=== PATIENT | female | born 1945 | race Caucasian/White ===

== ENCOUNTER 2019-12-05 14:19 | Inpatient (IN) | payer MEDICARE, OTHER ==
[~2019-12-05] VITALS: Ht 154.9 cm; Wt 75.0 kg
[2019-12-05 18:30] VITALS: BP 135/63
[2019-12-05] MEDS ORDERED: ATEN50TA2 PO (19:07)
[2019-12-05] MEDS ORDERED: LATA0.0015 OU (19:07)
[2019-12-05] MEDS ORDERED: METR1INJ2 IV (19:07)
[2019-12-05] MEDS ORDERED: CIPR1.5I IV (19:07)
[2019-12-05] MEDS ORDERED: HYDR25TAB PO (19:07)
[2019-12-05] MEDS ORDERED: PRESCAP PO (19:07)
[2019-12-05] MEDS ORDERED: SYNT112T2 PO (19:07)
[2019-12-05 19:15] LABS: HEMATOCRIT 34.8 % (36.0-47.0); HEMOGLOBIN 11.1 g/dl (12.0-15.5); MEAN CORPUSCULAR HEMOGLOBIN 29.4 pg (27.0-33.0); MEAN CORPUSCULAR HGB CONC 31.9 g/dl (32.0-36.5); MEAN CORPUSCULAR VOLUME 92.1 fl (80.0-96.0); PLATELET COUNT, AUTOMATED 185 10^3/uL (150-450); RED BLOOD COUNT 3.78 10^6/uL (4.00-5.40); WHITE BLOOD COUNT 4.5 10^3/uL (4.0-10.0)
[2019-12-05] MEDS ORDERED: CIPROFLOXACIN/D5W 400 MG/200 ML BAG (J0744) IV SCH (19:15)
[2019-12-05] MEDS ORDERED: metroNIDAZOLE/NACL 500MG(5MG/ML)100 ML BAG (S0030) IV SCH (19:15)
[2019-12-05 19:38] LABS: ALBUMIN 3.1 GM/DL (3.2-5.2); ALT/SGPT 257 U/L (12-78); AMYLASE 50 U/L (25-115); BILIRUBIN,TOTAL 1.3 MG/DL (0.2-1.0); BLOOD UREA NITROGEN 8 MG/DL (7-18); CALCIUM LEVEL 8.3 MG/DL (8.8-10.2); CARBON DIOXIDE LEVEL 23 MEQ/L (21-32); CHLORIDE LEVEL 110 MEQ/L (98-107); CREATININE FOR GFR 0.61 MG/DL (0.55-1.30); GLOMERULAR FILTRATION RATE > 60.0 (>39); GLUCOSE, FASTING 71 MG/DL (70-100); LIPASE 308 U/L (73-393); POTASSIUM SERUM 3.3 MEQ/L (3.5-5.1); SODIUM LEVEL 144 MEQ/L (136-145); TOTAL PROTEIN 5.9 GM/DL (6.4-8.2)
[2019-12-05] MEDS: NS 1,000 ML IV SCH (19:43)
[2019-12-05] MEDS ORDERED: CIPROFLOXACIN 400 MG in IV 1 EA IV SCH (21:00)
--- NOTE | 2019-12-05 21:00 | HPEPDOC ---
[facility] Medical History & Physical Date of Admission Dec 05, 2019 Date of Service: Dec 05, 2019 Other Provider Julian SYLVESTER Attending Physician: JAVIER LOPEZ MD History and Physical TIME OF SERVICE: 8:42 PM CHIEF COMPLAINT: Abdominal pain HISTORY OF PRESENT ILLNESS: This is a 74 old female that presented to [facility] on December 04 with complaints of 2 week in duration , relapsing and remitting right upper quadrant abdominal pain that radiated to her back and was associated with nausea but not vomiting. Her blood work was remarkable for lipase of 577; ultrasound confirmed the presence of gallstones without findings consistent with acute cholecystitis , while MRCP showed a 0.5 cm stone. Currently, she denies having abdominal pain nausea, vomiting, fevers or chills. REVIEW OF SYSTEMS: 12 point review of systems negative except as listed in HPI PAST MEDICAL/ SURGICAL HISTORY: Chronic hypertension Gout Dyslipidemia Hypothyroidism Status post tubal ligation Last post left rotator cuff surgery SOCIAL HISTORY: She quit smoking 40 years ago FAMILY HISTORY: CAD Liver cirrhosis Diabetes Bladder cancer ALLERGIES: Please see below. HOME MEDICATIONS: Please see below. PHYSICAL EXAMINATION: VITAL SIGNS: Please see below. GEN: well-nourished / well developed/ NAD INTEGUMENT: not flushed/ not jaundice / no Mayer sign or Enfield sign HEENT: NCAT / lips acyanotic /mucus membranes moist and pink / sclera anicteric CVS: RRR/NMRG LUNGS: lungs are clear to auscultation bilaterally on room air ABDOMEN: Contour obese / there are no masses or lesions /the abdomen is soft & not tender with palpation MSK/EXTREMITIES: range of motion intact in all 4 extremities NEURO: CN 2-12 are grossly intact / speech is not dysarthric PSYCH: alert and oriented to person place and time/ able to understand and follow all commands LABORATORY DATA: See below. IMAGING: Please see HPI. MICROBIOLOGY: Please see below. ASSESSMENT: Ms. Olivas is a 74 year old female the past medical history of hypertension, dyslipidemia, hypothyroidism who was transferred from [facility] for ERCP. PLAN: 1. Choledocholithiasis. Mild gallstone pancreatitis has resolved Plan: Admit to medical floor/nothing by mouth/IV fluids/follow-up GI / discontinue antibiotics / Tylenol when necessary 2. Chronic hypertension. Plan: Atenolol, hydrochlorothiazide 3. Hypothyroidism. Plan: Levothyroxine 4. Obesity BMI is 31.2 This complicates care Plan: can f/u w PCP for STOP BANG questionnaire & senior physical therapist consult on an outpatient basis/ recommend cardiovascular exercise for 40 min 4-5 days a week DVT PROPHYLAXIS: SCDs DISPOSITION: Home after more than 2 midnight's stay Vital Signs Vital Signs Date Time Temp Pulse Resp B/P (MAP) Pulse Ox O2 Delivery O2 Flow Rate FiO2 12/05/19 18:30 98.0 63 18 135/63 (87) 98 Room Air Laboratory Data Labs 24H Laboratory Tests 2 12/05/19 19:03: Nucleated Red Blood Cells % (auto) 0.0, Anion Gap 11, Glomerular Filtration Rate > 60.0, Calcium Level 8.3L, Total Bilirubin 1.3H, Aspartate Amino Transf (AST/SGOT) 132H, Alanine Aminotransferase (ALT/SGPT) 257H, Alkaline Phosphatase 301H, Total Protein 5.9L, Albumin 3.1L, Albumin/Globulin Ratio 1.11, Amylase Level 50, Lipase 308 CBC/BMP Laboratory Tests 12/05/19 19:03 Home Medications Scheduled Atenolol (Atenolol) 50 Mg Tablet, 50 MG PO DAILY Ciprofloxacin in 5 % Dextrose (Ciprofloxacn-D5w 400 mg/200 ml) 400 Mg/200 Ml Piggyback, 400 MG IV Q12H RECEIVED AT [facility] Hydrochlorothiazide (Hydrochlorothiazide) 25 Mg Tablet, 25 MG PO DAILY Latanoprost/Pf (Latanoprost 0.005% Eye Drop) 7.5 Ml Drops, 1 DROP OU QHS Levothyroxine Sodium (Synthroid) 112 Mcg Tablet, 112 MCG PO DAILY Metronidazole/Sodium Chloride (Metronidazole 500 mg/100 ml) 500 Mg/100 Ml Piggyback, 500 MG IV Q8H RECEIVED AT [facility] Vit A/Vit C/Vit E/Zinc/Copper (Preservision Areds Softgel) 1 Each Capsule, 1 CAP PO BID Allergies Coded Allergies: Penicillins (Verified Allergy, Intermediate, rash, redness, 12/05/19) A-FIB/CHADSVASC A-FIB History Current/History of A-Fib/PAF?: No Current PO Anticoag Therapy: No JAVIER LOPEZ MD Dec 05, 2019 21:00
[2019-12-05] MEDS: OCUVITE 1 TAB PO SCH (21:51)
[2019-12-05] MEDS: LATANOPROST 0.005% OPHTH SOLN 2.5 ML OU SCH (21:51)
[2019-12-05 22:00] VITALS: BP 134/63
[2019-12-05] MEDS ORDERED: metroNIDAZOLE 500 MG in IV 1 EA IV SCH (22:00)
[2019-12-06] VITALS (8 sets, daily range): BP systolic 107–119; BP diastolic 59–78
[2019-12-06 06:02] LABS: HEMATOCRIT 35.4 % (36.0-47.0); HEMOGLOBIN 11.1 g/dl (12.0-15.5); MEAN CORPUSCULAR HGB CONC 31.4 g/dl (32.0-36.5); MEAN CORPUSCULAR VOLUME 92.4 fl (80.0-96.0); PLATELET COUNT, AUTOMATED 172 10^3/uL (150-450); RED BLOOD COUNT 3.83 10^6/uL (4.00-5.40); WHITE BLOOD COUNT 4.8 10^3/uL (4.0-10.0)
[2019-12-06] MEDS: LEVOTHYROXINE 112MCG TABLET (0.112MG) PO SCH (06:07)
[2019-12-06] MEDS: ACETAMINOPHEN 650MG ER TAB (TYLENOL ARTHRITIS) PO PRN ×2 (06:24→22:03)
[2019-12-06 06:25] LABS: ALT/SGPT 217 U/L (12-78); BLOOD UREA NITROGEN 10 MG/DL (7-18); CALCIUM LEVEL 8.2 MG/DL (8.8-10.2); CARBON DIOXIDE LEVEL 22 MEQ/L (21-32); CHLORIDE LEVEL 110 MEQ/L (98-107); CREATININE FOR GFR 0.61 MG/DL (0.55-1.30); GLOMERULAR FILTRATION RATE > 60.0 (>39); GLUCOSE, FASTING 55 MG/DL (70-100); MAGNESIUM LEVEL 1.9 MG/DL (1.8-2.4); POTASSIUM SERUM 3.2 MEQ/L (3.5-5.1); SODIUM LEVEL 142 MEQ/L (136-145)
[2019-12-06] MEDS: NS 1,000 ML IV SCH ×2 (07:26→18:23)
[2019-12-06] MEDS: hydroCHLOROthiazide 25 MG TAB PO SCH (08:56)
[2019-12-06] MEDS: OCUVITE 1 TAB PO SCH ×2 (08:56→22:03)
[2019-12-06] MEDS: atenoloL 50 MG TAB PO SCH (08:57)
[2019-12-06] MEDS: POTASSIUM CHLORIDE 10 MEQ SR TABLET PO SCH ×2 (08:57→12:23)
[2019-12-06] MEDS ORDERED: ISOVUE-300 61% 50ML VIAL (Q9967) As Ordered ONE (13:54)
[2019-12-06] MEDS ORDERED: fentaNYL 100 MCG/2 ML INJECTION (J3010) As Ordered ONE (15:46)
[2019-12-06] MEDS ORDERED: ROCURONIUM BROMIDE 50 MG/5 ML VIAL As Ordered ONE (15:46)
[2019-12-06] MEDS ORDERED: propofoL 200 MG/20 ML VIAL As Ordered ONE (15:46)
[2019-12-06] MEDS ORDERED: MIDAZOLAM INJ 2 MG/2 ML VIAL (J2250) As Ordered ONE (15:46)
[2019-12-06] MEDS ORDERED: LIDOCAINE 2% INJ 100 MG/5 ML SDV (FOR ANES.) As Ordered ONE (15:46)
[2019-12-06] MEDS ORDERED: SCOPOLAMINE 1MG TRANSDERMAL PATCH TOP ONE (16:15)
--- NOTE | 2019-12-06 17:15 | IPNPDOC ---
Date Seen The patient was seen on 12/06/19. Progress Note SUBJECTIVE: 74 y.o female w/ PMH of HTN, HLD & Hypothyroidism was transferred from another facility for choledocholithiasis requiring ERCP. She was seen in the morning, she reports significant improvement in nausea & abdominal pain. She reports minimal symptoms at this time, nearly close to her baseline. She was evaluated by Dr. Kapoor overnight and scheduled for ERCP later today. She denies any chest pain, vomiting, abdominal pain, diarrhea or constipation. 10 point review of system is negative except for above PHYSICAL EXAMINATION: VITAL SIGNS: Please see below. GENERAL: No distress HEENT: Normocephalic, atraumatic, moist mucous membranes NECK: Supple CARDIOVASCULAR EXAMINATION: S1, S2, no murmurs RESPIRATORY EXAMINATION: Clear to auscultation, no wheezing ABDOMINAL EXAMINATION: Soft, minimal right upper quadrant tenderness, nondistended, positive bowel sounds EXTREMITIES: Range of motion intact SKIN: No rash NEUROLOGICAL EXAMINATION: Alert and oriented 3, no focal deficits PSYCHIATRIC EXAMINATION: Calm and cooperative LABORATORY DATA, IMAGING STUDIES, MICROBIOLOGY: Please see below. ASSESSMENT AND PLAN: 74-year-old female with past medical history of hypertension, hyperlipidemia and hypothyroidism, presented from another facility with choledocholithiasis for an ERCP. PROBLEMS: 1. Choledocholithiasis: Evaluated by Dr. Kapoor overnight, plan for ERCP later today, patient is currently minimally symptomatic with improvement in LFTs, questionable passing of stone, continue maintenance IV fluids. 2. Hypertension: Continue atenolol and hydrochlorothiazide. 3. Hypothyroidism: Continue levothyroxine. DVT prophylaxis: SCD/TEDs GI prophylaxis: Not needed at this time VS, I&O, 24H, Saniya Vital Signs/I&O Vital Signs Date Time Temp Pulse Resp B/P (MAP) Pulse Ox O2 Delivery O2 Flow Rate FiO2 12/06/19 08:57 69 119/61 12/06/19 06:00 96.4 20 96 12/05/19 18:30 Room Air I&O- Last 24 Hours up to 6 AM 12/06/19 06:00 Intake Total 300 ml Output Total 550 ml Balance -250 ml Laboratory Data 24H LABS Laboratory Tests 2 12/05/19 19:03: Nucleated Red Blood Cells % (auto) 0.0, Anion Gap 11, Glomerular Filtration Rate > 60.0, Calcium Level 8.3L, Total Bilirubin 1.3H, Aspartate Amino Transf ( AST/SGOT) 132H, Alanine Aminotransferase (ALT/SGPT) 257H, Alkaline Phosphatase 301H, Total Protein 5.9L, Albumin 3.1L, Albumin/Globulin Ratio 1.11, Amylase Level 50, Lipase 308 12/06/19 05:37: Nucleated Red Blood Cells % (auto) 0.0, Anion Gap 10, Glomerular Filtration Rate > 60.0, Calcium Level 8.2L, Total Bilirubin 1.0, Aspartate Amino Transf (AST/SGOT) 96H, Alanine Aminotransferase (ALT/SGPT) 217H, Alkaline Phosphatase 271H, Total Protein 6.0L, Albumin 3.0L, Albumin/Globulin Ratio 1.00, Magnesium Level 1.9 CBC/BMP Laboratory Tests 12/05/19 19:03 12/06/19 05:37 MARK HERMAN MD Dec 06, 2019 17:15
[2019-12-06] MEDS ORDERED: SUGAMMADEX SODIUM 500 MG/5 ML VIAL (BRIDION) As Ordered ONE (17:19)
[2019-12-06] MEDS ORDERED: ONDANSETRON 4MG/2ML VIAL (J2405) As Ordered ONE (17:20)
[2019-12-06] MEDS ORDERED: dexameTHASONE 4 MG/ML 1ML VIAL (J1100) As Ordered ONE (17:20)
[2019-12-06] MEDS ORDERED: METOCLOPRAMIDE INJ 10MG/2ML VIAL (J2765) As Ordered ONE (17:20)
[2019-12-06] MEDS ORDERED: EPINEPHrine 1MG/10ML SYRINGE 1.5IN As Ordered ONE (17:22)
--- NOTE | 2019-12-06 17:52 | ROOR ---
Patient Name: Daphnie Olivas Procedure Date: 12/06/2019 1:21 PM Date of : 1945 Age: 74 Gender: Female Note Status: Finalized Procedure: ERCP + Papillotomy + Balloon Sweep Indications: Abdominal pain of suspected biliary origin, Abnormal MRCP, Elevated liver enzymes, Evaluation and possible treatment of bile duct stone(s), Bile duct stone(s) Providers: Sharif Kapoor MD Referring MD: 2. Inpatient 2. Inpatient Requesting Provider: Medicines: General Anesthesia Complications: No immediate complications. Procedure: Pre-Anesthesia Assessment: - The heart rate, respiratory rate, oxygen saturations, blood pressure, adequacy of pulmonary ventilation, and response to care were monitored throughout the procedure. The Duodenoscope was introduced through the mouth, and advanced to the duodenum and used to inject contrast into the bile duct. The ERCP was accomplished without difficulty. The patient tolerated the procedure well. Findings: The upper GI tract was traversed under direct vision without detailed examination. The major papilla was normal. The bile duct was deeply cannulated with the short-nosed traction sphincterotome. Contrast was injected. I personally interpreted the bile duct images. Ductal flow of contrast was adequate. Image quality was adequate. Contrast extended to the entire biliary tree. The lower third of the main bile duct contained one stone. The entire biliary tree was mildly dilated, with a stone causing an obstruction. A short 0.035 inch Soft Jagwire was passed into the biliary tree. Biliary sphincterotomy was made with a monofilament traction (standard) sphincterotome using ERBE electrocautery. There was no post-sphincterotomy bleeding. The biliary tree was swept with a 12 mm balloon starting at the bifurcation. Sludge was swept from the duct. All stones were removed. Nothing was found. Impression: - The entire biliary tree was mildly dilated, with a stone causing an obstruction. - Choledocholithiasis was found. Complete removal was accomplished by biliary sphincterotomy and balloon extraction. - A biliary sphincterotomy was performed. - The biliary tree was swept and nothing was found. - The examination was otherwise normal. Recommendation: - Avoid aspirin and nonsteroidal anti-inflammatory medicines for 2 weeks. - Low fat diet. - [facility]. - Watch for pancreatitis, bleeding, perforation, and cholangitis. - The findings and recommendations were discussed with the patient's family. - The findings and recommendations were discussed with the patient. Sharif Kapoor MD Sharif Kapoor MD 12/06/2019 5:51:43 PM Electronically signed by Sharif Kapoor MD Number of Addenda: 0 Note Initiated On: 12/06/2019 1:21 PM Estimated Blood Loss: Estimated blood loss: none.
--- NOTE | 2019-12-06 18:06 | REP ---
ERCP: Four views. History: Abdomen pain. 1 minute 44 seconds of fluoroscopy time was utilized. Findings: A sequence of four last image hold fluoroscopically obtained spot radiographs of the right upper quadrant taken during ERCP document cannulation and contrast injection of the common bile duct. Electronically Signed by Roshan Gregg MD 12/06/2019 06:25 P
[2019-12-06] MEDS ORDERED: ONDANSETRON 4MG/2ML VIAL (J2405) IV PRN (18:15)
[2019-12-06] MEDS ORDERED: NS 1,000 ML IV SCH (18:15)
--- NOTE | 2019-12-06 21:11 | CR ---
DATE OF CONSULTATION: 12/05/2019 This is a 74-year-old white female who was seen on 12/05/2019 after she was transferred from [facility]. The patient has had chronic relapsing bouts of right upper quadrant pain with three multiple bouts with radiation to her back. She has had symptoms since early October. She presented now to [facility] with a lipase of 577. Ultrasound did show gallstones and sludge in the gallbladder with acute cholecystitis. Magnetic resonance cholangiopancreatography (MRCP) showed a 0.5 mm common bile duct stone. The patient denies any fevers, night sweats or shaking chills. She is being seen by GI for evaluation and consideration for an endoscopic retrograde cholangiopancreatography (ERCP). 12-point review of systems is negative except as listed above in the history of the present illness. PAST MEDICAL HISTORY: Positive for hypertension, gout, dyslipidemia, hypothyroidism, status post tubal ligation, status post left rotator cuff surgery. SOCIAL HISTORY: The patient stopped smoking 40 years ago. FAMILY HISTORY: Positive for coronary artery disease, cirrhosis of the liver, diabetes and bladder cancer. PHYSICAL EXAMINATION: General: Well-developed, well-nourished white female in no obvious acute distress. Appears stated age. Chest: Clear to auscultation. Cardiovascular Exam: Showed a regular rhythm. No murmurs or gallops. Normal physiologic split, S1, S2. Abdomen: Soft, mild right upper quadrant tenderness. No hepatosplenomegaly. Bowel sounds are positive. Extremities: No cyanosis, clubbing, or edema. Dewey's negative. Laboratory studies on admission showed a white count of 4500, hemoglobin and hematocrit of 11.1 and 34.8. The patient's chemistry showed a total bilirubin of 1.3, AST 132, ALT was 257, alkaline phosphatase was 301, lipase was 308, which is within our normal range. ANALYSIS: Gallstone pancreatitis. At the present time, the patient has liver functions that are elevated, abnormal imaging of common bile duct by magnetic resonance cholangiopancreatography (MRCP), suggesting a common bile duct stone and is symptomatic with recurrent episodes of abdominal pain. PLAN: 1. Plan will be to set the patient up for an ERCP, papillotomy balloon sweep to clear the common bile duct. 2. The patient would need a laparoscopic cholecystectomy as an outpatient once an acceptable interval between the pancreatitis and surgery for the surgeon. Usually 4-6 weeks post pancreatitis to consider laparoscopic cholecystectomy. 3. Informed consent has been given to the patient for ERCP.
[2019-12-06] MEDS: LATANOPROST 0.005% OPHTH SOLN 2.5 ML OU SCH (22:03)
[2019-12-07 02:00] VITALS: BP 113/57
[2019-12-07] MEDS: LEVOTHYROXINE 112MCG TABLET (0.112MG) PO SCH (05:38)
[2019-12-07 06:17] LABS: HEMATOCRIT 36.8 % (36.0-47.0); HEMOGLOBIN 11.7 g/dl (12.0-15.5); MEAN CORPUSCULAR HEMOGLOBIN 29.1 pg (27.0-33.0); MEAN CORPUSCULAR HGB CONC 31.8 g/dl (32.0-36.5); MEAN CORPUSCULAR VOLUME 91.5 fl (80.0-96.0); PLATELET COUNT, AUTOMATED 213 10^3/uL (150-450); RED BLOOD COUNT 4.02 10^6/uL (4.00-5.40); WHITE BLOOD COUNT 6.4 10^3/uL (4.0-10.0)
[2019-12-07 06:30] LABS: ALBUMIN 2.9 GM/DL (3.2-5.2); ALT/SGPT 184 U/L (12-78); BILIRUBIN,TOTAL 0.8 MG/DL (0.2-1.0); BLOOD UREA NITROGEN 8 MG/DL (7-18); CALCIUM LEVEL 8.4 MG/DL (8.8-10.2); CARBON DIOXIDE LEVEL 18 MEQ/L (21-32); CHLORIDE LEVEL 111 MEQ/L (98-107); CREATININE FOR GFR 0.67 MG/DL (0.55-1.30); GLOMERULAR FILTRATION RATE > 60.0 (>39); GLUCOSE, FASTING 150 MG/DL (70-100); MAGNESIUM LEVEL 1.7 MG/DL (1.8-2.4); PHOSPHORUS LEVEL 3.3 MG/DL (2.5-4.9); POTASSIUM SERUM 4.1 MEQ/L (3.5-5.1); SODIUM LEVEL 139 MEQ/L (136-145); TOTAL PROTEIN 6.4 GM/DL (6.4-8.2)
[2019-12-07] MEDS: PROMETHAZINE INJ 25 MG/ML VIAL (J2550) IV PRN ×2 (08:33→15:50)
[2019-12-07] MEDS: hydroCHLOROthiazide 25 MG TAB PO SCH (08:40)
[2019-12-07] MEDS: atenoloL 50 MG TAB PO SCH (08:40)
[2019-12-07] MEDS: OCUVITE 1 TAB PO SCH ×2 (09:00→20:19)
[2019-12-07 09:20] VITALS: BP 153/79
[2019-12-07] MEDS ORDERED: ONDANSETRON 4 MG TAB (S0181) PO PRN (10:00)
[2019-12-07] MEDS: NS 1,000 ML IV SCH (11:53)
[2019-12-07] MEDS: ONDANSETRON 4MG/2ML VIAL (J2405) IV PRN (11:53)
[2019-12-07] MEDS ORDERED: MAG SULF 1GM/100ML (MAG RUN) 1 GM in IV 1 EA IV ONE (12:00)
--- NOTE | 2019-12-07 12:14 | IPNPDOC ---
Subjective Date Seen The patient was seen on 12/07/19. Subjective Chief Complaint/HPI Patient is still complaining of persistent nausea and vomiting. Had some emesis this morning and now complaining of abdominal pain which is right upper quadrant and in location General: Denies: ROS Unobtainable, Chills, Night Sweats, Fatigue, Malaise, Normal Appetite, Other Symptoms Constitutional: Denies: Chills, Fever, Malaise, Night Sweats, Weakness, Fatigue, Weight Loss, Lethargy, Other Eyes: Denies: Pain, Vision change, Conjunctivae inflammation, Eyelid inflammation, Redness, Other Pulmonary: Denies: Dyspnea, Cough, Pleuritic Chest Pain, Other Symptoms Cardiovascular: Denies: Chest Pain, Palpitations, Orthopnea, Paroxysmal Noc. Dyspnea, Edema, Lt Headedness, Other Symptoms Gastrointestinal: Reports: Nausea, Vomiting, Abdominal Pain Musculoskeletal: Denies: Neck Pain, Back Pain, Shoulder Pain, Arm Pain, Hand Pain, Leg Pain, Foot Pain, Joint Pain, Muscle Pain, Spasms, Other Symptoms Neurological: Denies: Weakness, Numbness, Incoordination, Change in speech, Confusion, Seizures, Other Symptoms Objective Physical Examination General Exam: Positive: Alert, Cooperative Eye Exam: Positive: PERRLA, Conjunctiva & lids normal ENT Exam: Positive: Atraumatic, Mucous membr. moist/pink Neck Exam: Positive: Supple Chest Exam: Positive: Clear to auscultation, Normal air movement Heart Exam: Positive: Rate Normal, Normal S1, Normal S2 Abdomen Exam: Positive: Normal bowel sounds, Soft, Tenderness (. Mild generalized tenderness all over the abdomen) Extremity Exam: Positive: Normal pulses Skin Exam: Positive: Nl turgor and temperature Assessment /Plan Problems (1) Gall stone pancreatitis Status: Chronic Problem Text: Patient was seen and evaluated by Dr. Kapoor Patient had a ERCP done: Impression: - The entire biliary tree was mildly dilated, with a stone causing an obstruction. - Choledocholithiasis was found. Complete removal was accomplished by biliary sphincterotomy and balloon extraction. - A biliary sphincterotomy was performed. - The biliary tree was swept and nothing was found. - The examination was otherwise normal. Since this morning. Patient had increasing nausea, vomiting and now right upper quadrant pain He has been started on Zofran and Phenergan when necessary for nausea, vomiting Restart small dose of morphine sulfate for pain Request KUB to rule out any free air The present medications Plan/VTE VTE Prophylaxis Ordered?: Yes VS, I&O, 24H, Fishbone Vital Signs/I&O Vital Signs Date Time Temp Pulse Resp B/P (MAP) Pulse Ox O2 Delivery O2 Flow Rate FiO2 12/07/19 09:20 98.0 87 17 153/79 (103) 96 Room Air I&O- Last 24 Hours up to 6 AM 12/07/19 06:00 Intake Total 1620 ml Output Total 1750 ml Balance -130 ml Laboratory Data 24H LABS Laboratory Tests 2 12/07/19 05:38: Nucleated Red Blood Cells % (auto) 0.0, Anion Gap 10, Glomerular Filtration Rate > 60.0, Calcium Level 8.4L, Phosphorus Level 3.3, Magnesium Level 1.7L, Total B ilirubin 0.8, Aspartate Amino Transf (AST/SGOT) 68H, Alanine Aminotransferase (ALT/SGPT) 184H, Alkaline Phosphatase 343H, Total Protein 6.4, Albumin 2.9L, Albumin/Globulin Ratio 0.83L CBC/BMP Laboratory Tests 12/07/19 05:38 JESSICA FINE MD Dec 07, 2019 12:14
[2019-12-07] MEDS ORDERED: MORPHINE 2 MG/ML 1ML VIAL (J2270) IV PRN (12:15)
[2019-12-07 13:30] LABS: HEMATOCRIT 35.4 % (36.0-47.0); HEMOGLOBIN 11.7 g/dl (12.0-15.5); MEAN CORPUSCULAR HEMOGLOBIN 30.3 pg (27.0-33.0); MEAN CORPUSCULAR HGB CONC 33.1 g/dl (32.0-36.5); MEAN CORPUSCULAR VOLUME 91.7 fl (80.0-96.0); PLATELET COUNT, AUTOMATED 204 10^3/uL (150-450); RED BLOOD COUNT 3.86 10^6/uL (4.00-5.40); WHITE BLOOD COUNT 15.9 10^3/uL (4.0-10.0)
[2019-12-07 14:00] VITALS: BP 113/53
[2019-12-07 14:03] LABS: ALBUMIN 3.3 GM/DL (3.2-5.2); ALT/SGPT 170 U/L (12-78); BILIRUBIN,TOTAL 0.8 MG/DL (0.2-1.0); BLOOD UREA NITROGEN 8 MG/DL (7-18); CALCIUM LEVEL 8.9 MG/DL (8.8-10.2); CARBON DIOXIDE LEVEL 20 MEQ/L (21-32); CHLORIDE LEVEL 108 MEQ/L (98-107); CREATININE FOR GFR 0.71 MG/DL (0.55-1.30); GLOMERULAR FILTRATION RATE > 60.0 (>39); GLUCOSE, FASTING 151 MG/DL (70-100); POTASSIUM SERUM 3.8 MEQ/L (3.5-5.1); SODIUM LEVEL 138 MEQ/L (136-145); TOTAL PROTEIN 6.2 GM/DL (6.4-8.2)
[2019-12-07] MEDS: ACETAMINOPHEN 650MG ER TAB (TYLENOL ARTHRITIS) PO PRN (14:13)
--- NOTE | 2019-12-07 14:39 | REP ---
KUB ABDOMEN AND PELVIS: Two KUB films of the abdomen and pelvis performed. There is mild air and fecal material scattered throughout the colon. There is a mildly distended air-filled small bowel loop in the right upper quadrant. This may represent a mild focal ileus. There is no compelling radiographic evidence of small bowel obstruction. The stomach is not dilated, with a small amount of air noted within the stomach. There appear to be tiny phleboliths in the lower pelvis. Urinary bladder is mildly distended. There are degenerative changes of the spine. IMPRESSION: Mildly dilated small bowel loop in the right upper quadrant may represent a mild focal ileus. No compelling evidence for small bowel obstruction. Electronically Signed by Mian Mayer MD 12/07/2019 08:03 P
[2019-12-07 18:00] VITALS: BP 136/67
[2019-12-07] MEDS: MORPHINE 2 MG/ML 1ML VIAL (J2270) IV PRN (19:09)
[2019-12-07] MEDS: LATANOPROST 0.005% OPHTH SOLN 2.5 ML OU SCH (20:19)
[2019-12-07 22:00] VITALS: BP 135/65
[2019-12-08] MEDS: ONDANSETRON 4MG/2ML VIAL (J2405) IV PRN (00:28)
[2019-12-08 02:00] VITALS: BP 132/61
[2019-12-08] MEDS: MORPHINE 2 MG/ML 1ML VIAL (J2270) IV PRN ×3 (04:33→23:03)
[2019-12-08] MEDS: LEVOTHYROXINE 112MCG TABLET (0.112MG) PO SCH (05:47)
[2019-12-08 06:00] VITALS: BP 114/56
[2019-12-08 06:11] LABS: BASO % 0.1 % (0.0-1.0); HEMATOCRIT 36.3 % (36.0-47.0); HEMOGLOBIN 11.8 g/dl (12.0-15.5); LYMPH # 0.9 10^3/uL (1.5-5.0); LYMPH % 5.4 % (24.0-44.0); MEAN CORPUSCULAR HEMOGLOBIN 29.2 pg (27.0-33.0); MEAN CORPUSCULAR HGB CONC 32.5 g/dl (32.0-36.5); MEAN CORPUSCULAR VOLUME 89.9 fl (80.0-96.0); MONO # 0.8 10^3/uL (0.0-0.8); MONO % 4.9 % (0.0-5.0); NEUTROPHILS # 14.3 10^3/uL (1.5-8.5); NEUTROPHILS % 89.1 % (36.0-66.0); PLATELET COUNT, AUTOMATED 202 10^3/uL (150-450); RED BLOOD COUNT 4.04 10^6/uL (4.00-5.40); WHITE BLOOD COUNT 16.1 10^3/uL (4.0-10.0)
[2019-12-08 06:37] LABS: ALBUMIN 3.2 GM/DL (3.2-5.2); ALT/SGPT 142 U/L (12-78); BILIRUBIN,TOTAL 0.9 MG/DL (0.2-1.0); BLOOD UREA NITROGEN 5 MG/DL (7-18); CALCIUM LEVEL 8.5 MG/DL (8.8-10.2); CARBON DIOXIDE LEVEL 25 MEQ/L (21-32); CHLORIDE LEVEL 105 MEQ/L (98-107); CREATININE FOR GFR 0.61 MG/DL (0.55-1.30); GLOMERULAR FILTRATION RATE > 60.0 (>39); GLUCOSE, FASTING 110 MG/DL (70-100); LIPASE 6842 U/L (73-393); SODIUM LEVEL 136 MEQ/L (136-145); TOTAL PROTEIN 6.2 GM/DL (6.4-8.2)
[2019-12-08] MEDS: NS 1,000 ML IV SCH ×2 (07:45→23:08)
[2019-12-08] MEDS: OCUVITE 1 TAB PO SCH ×2 (08:22→20:10)
[2019-12-08] MEDS: hydroCHLOROthiazide 25 MG TAB PO SCH (08:22)
[2019-12-08] MEDS: atenoloL 50 MG TAB PO SCH (08:23)
[2019-12-08 10:00] VITALS: BP 118/55
--- NOTE | 2019-12-08 12:21 | IPNPDOC ---
Subjective Date Seen The patient was seen on 12/08/19. Subjective Chief Complaint/HPI Kaye is feeling much better today and 1 episode of nausea but no vomiting. We will restart clear liquid diets General: Denies: ROS Unobtainable, Chills, Night Sweats, Fatigue, Malaise, Normal Appetite, Other Symptoms Constitutional: Denies: Chills, Fever, Malaise, Night Sweats, Weakness, Fatigue, Weight Loss, Lethargy, Other Eyes: Denies: Pain, Vision change, Conjunctivae inflammation, Eyelid inflammation, Redness, Other Skin: Denies: Rash, Lesions, Breakdown Pulmonary: Denies: Dyspnea, Cough, Pleuritic Chest Pain, Other Symptoms Cardiovascular: Denies: Chest Pain, Palpitations, Orthopnea, Paroxysmal Noc. Dyspnea, Edema, Lt Headedness, Other Symptoms Gastrointestinal: Reports: Nausea Genitourinary: Denies: Dysuria, Frequency, Incontinence, Hematuria, Retention, Other Symptoms Hematologic: Denies: Bruising, Bleeding Excessively, Petecchia, Purpura, Enlarged Lymph Nodes, Other Hematologic Endocrine: Denies: Polydipsia, Polyphagia, Polyuria, Heat Intolerance, Cold Intolerance, Other Endocrine Sx Musculoskeletal: Denies: Neck Pain, Back Pain, Shoulder Pain, Arm Pain, Hand Pain, Leg Pain, Foot Pain, Joint Pain, Muscle Pain, Spasms, Other Symptoms Neurological: Denies: Weakness, Numbness, Incoordination, Change in speech, Confusion, Seizures, Other Symptoms Objective Physical Examination Neck Exam: Positive: Supple Chest Exam: Positive: Clear to auscultation, Normal air movement Heart Exam: Positive: Rate Normal, Normal S1, Normal S2 Abdomen Exam: Positive: Normal bowel sounds, Soft, Tenderness (, fairly mild tenderness on abdominal palpation) Extremity Exam: Positive: Normal pulses Skin Exam: Positive: Nl turgor and temperature Assessment /Plan Problems (1) Gall stone pancreatitis Status: Chronic Problem Text: Patient was seen and evaluated by Dr. Kapoor Patient had a ERCP done: Impression: - The entire biliary tree was mildly dilated, with a stone causing an obstruction. - Choledocholithiasis was found. Complete removal was accomplished by biliary sphincterotomy and balloon extraction. - A biliary sphincterotomy was performed. - The biliary tree was swept and nothing was found. - The examination was otherwise normal. Patient repeat KUB did show focal ileus but no SBO Patient is clinically much better today. Decreased nausea, vomiting, abdominal pain Will restart her clear liquid diet and observation Repeat labs in a.m. If patient tolerates regular diet, then possibly will discharge home in a.m. Plan/VTE VTE Prophylaxis Ordered?: Yes VS, I&O, 24H, Fishbone Vital Signs/I&O Vital Signs Date Time Temp Pulse Resp B/P (MAP) Pulse Ox O2 Delivery O2 Flow Rate FiO2 12/08/19 08:23 118/58 12/08/19 06:00 98.3 68 15 91 Room Air I&O- Last 24 Hours up to 6 AM 12/08/19 06:00 Intake Total 2730 ml Output Total 1200 ml Balance 1530 ml Laboratory Data 24H LABS Laboratory Tests 2 12/07/19 12:23: Lipase 01440H 12/07/19 13:00: Nucleated Red Blood Cells % (auto) 0.0, Anion Gap 10, Glomerular Filtration Rate > 60.0, Calcium Level 8.9, Total Bilirubin 0.8, Aspartate Amino Transf (AST/SGOT) 54H, Alanine Aminotransferase (ALT/SGPT) 170H, Alkaline Phosphatase 280H, Total Protein 6.2L, Albumin 3.3, Albumin/Globulin Ratio 1.14 12/08/19 05:44: Lipase 6842H, Nucleated Red Blood Cells % (auto) 0.0, Anion Gap 6L, Glomerular Filtration Rate > 60.0, Calcium Level 8.5L, Total Bilirubin 0.9, Aspartate Amino Transf (AST/SGOT) 48H, Alanine Aminotransferase (ALT/SGPT) 142H, Alkaline Phosphatase 264H, Total Protein 6.2L, Albumin 3.2, Albumin/Globulin Ratio 1.07, Immature Granulocyte % (Auto) 0.5, Neutrophils (%) (Auto) 89.1H, Lymphocytes (%) (Auto) 5.4L, Monocytes (%) (Auto) 4.9, Eosinophils (%) (Auto) 0.0, Basophils (%) (Auto) 0.1, Neutrophils # (Auto) 14.3H, Lymphocytes # (Auto) 0.9L, Monocytes # (Auto) 0.8, Eosinophils # (Auto) 0.0, Basophils # (Auto) 0.0 CBC/BMP Laboratory Tests 12/07/19 13:00 12/08/19 05:44 JESSICA FINE MD Dec 08, 2019 12:21
[2019-12-08 14:00] VITALS: BP 127/57
[2019-12-08 18:00] VITALS: BP 125/56
[2019-12-08] MEDS: LATANOPROST 0.005% OPHTH SOLN 2.5 ML OU SCH (20:10)
[2019-12-08 22:00] VITALS: BP 105/55
[2019-12-09 02:00] VITALS: BP 133/65
[2019-12-09] MEDS: ONDANSETRON 4MG/2ML VIAL (J2405) IV PRN ×2 (05:09→23:30)
[2019-12-09] MEDS: MORPHINE 2 MG/ML 1ML VIAL (J2270) IV PRN ×3 (05:09→18:17)
[2019-12-09] MEDS: LEVOTHYROXINE 112MCG TABLET (0.112MG) PO SCH (05:56)
[2019-12-09 06:00] VITALS: BP 123/55
[2019-12-09 06:34] LABS: BASO % 0.1 % (0.0-1.0); EOS % 0.1 % (0.0-3.0); HEMATOCRIT 31.2 % (36.0-47.0); HEMOGLOBIN 10.6 g/dl (12.0-15.5); LYMPH # 0.8 10^3/uL (1.5-5.0); LYMPH % 4.6 % (24.0-44.0); MEAN CORPUSCULAR HEMOGLOBIN 30.2 pg (27.0-33.0); MEAN CORPUSCULAR VOLUME 88.9 fl (80.0-96.0); MONO # 1.2 10^3/uL (0.0-0.8); MONO % 7.1 % (0.0-5.0); NEUTROPHILS # 14.6 10^3/uL (1.5-8.5); NEUTROPHILS % 87.3 % (36.0-66.0); PLATELET COUNT, AUTOMATED 201 10^3/uL (150-450); RED BLOOD COUNT 3.51 10^6/uL (4.00-5.40); WHITE BLOOD COUNT 16.7 10^3/uL (4.0-10.0)
[2019-12-09 07:23] LABS: ALBUMIN 2.8 GM/DL (3.2-5.2); ALT/SGPT 104 U/L (12-78); BLOOD UREA NITROGEN 5 MG/DL (7-18); CARBON DIOXIDE LEVEL 28 MEQ/L (21-32); CHLORIDE LEVEL 100 MEQ/L (98-107); CREATININE FOR GFR 0.61 MG/DL (0.55-1.30); GLOMERULAR FILTRATION RATE > 60.0 (>39); GLUCOSE, FASTING 105 MG/DL (70-100); LIPASE 630 U/L (73-393); MAGNESIUM LEVEL 1.7 MG/DL (1.8-2.4); POTASSIUM SERUM 2.5 MEQ/L (3.5-5.1); SODIUM LEVEL 136 MEQ/L (136-145)
[2019-12-09] MEDS ORDERED: POTASSIUM CHLORIDE 10 MEQ SR TABLET PO ONE ×2 (08:00→15:00)
[2019-12-09] MEDS: OCUVITE 1 TAB PO SCH ×2 (09:12→21:37)
[2019-12-09] MEDS: hydroCHLOROthiazide 25 MG TAB PO SCH (09:12)
[2019-12-09] MEDS: atenoloL 50 MG TAB PO SCH (09:12)
[2019-12-09 10:00] VITALS: BP 125/72
--- NOTE | 2019-12-09 11:13 | IPNPDOC ---
Subjective Date Seen The patient was seen on 12/09/19. Subjective Chief Complaint/HPI Patient feels a lot better today. No more nausea, vomiting started eating today General: Denies: ROS Unobtainable, Chills, Night Sweats, Fatigue, Malaise, Normal Appetite, Other Symptoms Constitutional: Denies: Chills, Fever, Malaise, Night Sweats, Weakness, Fatigue, Weight Loss, Lethargy, Other Pulmonary: Denies: Dyspnea, Cough, Pleuritic Chest Pain, Other Symptoms Cardiovascular: Denies: Chest Pain, Palpitations, Orthopnea, Paroxysmal Noc. Dyspnea, Edema, Lt Headedness, Other Symptoms Gastrointestinal: Denies: Nausea, Vomiting, Abdominal Pain, Diarrhea, Constipation, Melena, Hematochezia, Other Symptoms Endocrine: Denies: Polydipsia, Polyphagia, Polyuria, Heat Intolerance, Cold Intolerance, Other Endocrine Sx Musculoskeletal: Denies: Neck Pain, Back Pain, Shoulder Pain, Arm Pain, Hand Pain, Leg Pain, Foot Pain, Joint Pain, Muscle Pain, Spasms, Other Symptoms Neurological: Denies: Weakness, Numbness, Incoordination, Change in speech, Confusion, Seizures, Other Symptoms Objective Physical Examination Neck Exam: Positive: Supple Chest Exam: Positive: Clear to auscultation, Normal air movement Heart Exam: Positive: Rate Normal, Normal S1, Normal S2 Abdomen Exam: Positive: Normal bowel sounds, Soft, Tenderness (, fairly mild tenderness on abdominal palpation) Extremity Exam: Positive: Normal pulses Skin Exam: Positive: Nl turgor and temperature Assessment /Plan Problems (1) Gall stone pancreatitis Status: Chronic Problem Text: Patient was seen and evaluated by Dr. Kapoor Patient had a ERCP done: Impression: - The entire biliary tree was mildly dilated, with a stone causing an obstruction. - Choledocholithiasis was found. Complete removal was accomplished by biliary sphincterotomy and balloon extraction. - A biliary sphincterotomy was performed. - The biliary tree was swept and nothing was found. - The examination was otherwise normal. Patient repeat KUB did show focal ileus but no SBO Patient is clinically much better today. Decreased nausea, vomiting, abdominal pain Patient's diet has been advanced. She is tolerating very well Her lipase is 630 today with slight leukocytosis of 16.7, but patient afebrile, asymptomatic Once patient's electrolytes are normal and mucositis or resolves. She probably be discharged home (2) Hypokalemia Status: Acute Problem Text: Potassium supplement ordered Repeat potassium level at 12:00 . We'll supplement more if needed Plan/VTE VTE Prophylaxis Ordered?: Yes VS, I&O, 24H, Fishbone Vital Signs/I&O Vital Signs Date Time Temp Pulse Resp B/P (MAP) Pulse Ox O2 Delivery O2 Flow Rate FiO2 12/09/19 11:06 16 12/09/19 10:00 96.3 68 125/72 (89) 95 Room Air I&O- Last 24 Hours up to 6 AM 12/09/19 06:00 Intake Total 1420 ml Output Total 1600 ml Balance -180 ml Laboratory Data 24H LABS Laboratory Tests 2 12/09/19 05:46: Immature Granulocyte % (Auto) 0.8, Neutrophils (%) (Auto) 87.3H, Lymphocytes (%) (Auto) 4.6L, Monocytes (%) (Auto) 7.1H, Eosinophils (%) (Auto) 0.1, Basophils (%) (Auto) 0.1, Neutrophils # (Auto) 14.6H, Lymphocytes # (Auto) 0.8L, Monocytes # (Auto) 1.2H, Eosinophils # (Auto) 0.0, Basophils # (Auto) 0.0, Nucleated Red Blood Cells % (auto) 0.0, Anion Gap 8, Glomerular Filtration Rate > 60.0, Calcium Level 8.0L, Magnesium Level 1.7L, Total Bilirubin 1.0, Aspartate Amino Transf (AST/SGOT) 47H, Alanine Aminotransferase (ALT/SGPT) 104H, Alkaline Phosphatase 200H, Total Protein 6.0L, Albumin 2.8L, Albumin/Globulin Ratio 0.88L, Lipase 630H CBC/BMP Laboratory Tests 12/09/19 05:46 JESSICA FINE MD Dec 09, 2019 11:13
[2019-12-09 12:34] LABS: BLOOD UREA NITROGEN 6 MG/DL (7-18); CALCIUM LEVEL 7.8 MG/DL (8.8-10.2); CARBON DIOXIDE LEVEL 29 MEQ/L (21-32); CHLORIDE LEVEL 100 MEQ/L (98-107); CREATININE FOR GFR 0.57 MG/DL (0.55-1.30); GLOMERULAR FILTRATION RATE > 60.0 (>39); GLUCOSE, FASTING 112 MG/DL (70-100); LIPASE 336 U/L (73-393); MAGNESIUM LEVEL 1.7 MG/DL (1.8-2.4); POTASSIUM SERUM 2.8 MEQ/L (3.5-5.1); SODIUM LEVEL 136 MEQ/L (136-145)
[2019-12-09 14:00] VITALS: BP 131/69
[2019-12-09] MEDS ORDERED: MAG SULF 1GM/100ML (MAG RUN) 1 GM in IV 1 EA IV ONE (15:00)
[2019-12-09 18:00] VITALS: BP 130/70
[2019-12-09 19:31] LABS: BLOOD UREA NITROGEN 5 MG/DL (7-18); CALCIUM LEVEL 7.9 MG/DL (8.8-10.2); CARBON DIOXIDE LEVEL 27 MEQ/L (21-32); CHLORIDE LEVEL 100 MEQ/L (98-107); CREATININE FOR GFR 0.61 MG/DL (0.55-1.30); GLOMERULAR FILTRATION RATE > 60.0 (>39); GLUCOSE, FASTING 152 MG/DL (70-100); POTASSIUM SERUM 3.1 MEQ/L (3.5-5.1); SODIUM LEVEL 136 MEQ/L (136-145)
[2019-12-09] MEDS: LATANOPROST 0.005% OPHTH SOLN 2.5 ML OU SCH (21:37)
[2019-12-09 22:00] VITALS: BP 134/75
[2019-12-09] MEDS: NS 1,000 ML IV SCH (23:15)
[2019-12-09] MEDS: ACETAMINOPHEN 650MG ER TAB (TYLENOL ARTHRITIS) PO PRN (23:42)
[2019-12-10] MEDS: MORPHINE 2 MG/ML 1ML VIAL (J2270) IV PRN ×3 (00:29→21:54)
[2019-12-10] MEDS: MOM 30ML SUSPENSION UDC PO PRN (00:29)
[2019-12-10 02:00] VITALS: BP 124/66
[2019-12-10] MEDS: LEVOTHYROXINE 112MCG TABLET (0.112MG) PO SCH (05:57)
[2019-12-10 06:00] VITALS: BP 119/66
[2019-12-10 06:44] LABS: BASO % 0.1 % (0.0-1.0); EOS % 0.2 % (0.0-3.0); HEMATOCRIT 31.9 % (36.0-47.0); HEMOGLOBIN 10.7 g/dl (12.0-15.5); LYMPH # 1.1 10^3/uL (1.5-5.0); LYMPH % 6.1 % (24.0-44.0); MEAN CORPUSCULAR HEMOGLOBIN 30.1 pg (27.0-33.0); MEAN CORPUSCULAR HGB CONC 33.5 g/dl (32.0-36.5); MEAN CORPUSCULAR VOLUME 89.6 fl (80.0-96.0); MONO # 1.1 10^3/uL (0.0-0.8); MONO % 5.9 % (0.0-5.0); NEUTROPHILS # 15.7 10^3/uL (1.5-8.5); NEUTROPHILS % 86.9 % (36.0-66.0); PLATELET COUNT, AUTOMATED 226 10^3/uL (150-450); RED BLOOD COUNT 3.56 10^6/uL (4.00-5.40); WHITE BLOOD COUNT 18.1 10^3/uL (4.0-10.0)
[2019-12-10 07:08] LABS: ALBUMIN 3.2 GM/DL (3.2-5.2); ALT/SGPT 95 U/L (12-78); BILIRUBIN,TOTAL 0.9 MG/DL (0.2-1.0); BLOOD UREA NITROGEN 5 MG/DL (7-18); CALCIUM LEVEL 8.4 MG/DL (8.8-10.2); CARBON DIOXIDE LEVEL 28 MEQ/L (21-32); CHLORIDE LEVEL 98 MEQ/L (98-107); CREATININE FOR GFR 0.64 MG/DL (0.55-1.30); GLOMERULAR FILTRATION RATE > 60.0 (>39); GLUCOSE, FASTING 167 MG/DL (70-100); POTASSIUM SERUM 3.1 MEQ/L (3.5-5.1); SODIUM LEVEL 133 MEQ/L (136-145)
[2019-12-10] MEDS ORDERED: PIPERACILLIN/TAZOBACTAM SOD 3.375 GM in D5W MINI-BAG PLUS 50 ML IV SCH (07:45)
[2019-12-10] MEDS: OCUVITE 1 TAB PO SCH ×2 (08:42→19:59)
[2019-12-10] MEDS: metroNIDAZOLE 500 MG in IV 1 EA IV SCH ×2 (08:42→18:16)
[2019-12-10] MEDS: SENOKOT S TAB PO SCH ×2 (08:42→19:58)
[2019-12-10] MEDS: atenoloL 50 MG TAB PO SCH (08:42)
[2019-12-10] MEDS: hydroCHLOROthiazide 25 MG TAB PO SCH (08:43)
[2019-12-10] MEDS: GASTROGRAFIN SOLUTION 30ML PO SCH ×2 (08:44→09:26)
[2019-12-10] MEDS ORDERED: MAG SULF 1GM/100ML (MAG RUN) 1 GM in IV 1 EA IV ONE (09:00)
--- NOTE | 2019-12-10 09:12 | IPNPDOC ---
Subjective Date Seen The patient was seen on 12/10/19. Subjective Chief Complaint/HPI Patient is comfortable, but she still feels sick after some mild amount of oral fluid intake. No more abdominal pain. General: Denies: ROS Unobtainable, Chills, Night Sweats, Fatigue, Malaise, Normal Appetite, Other Symptoms Skin: Denies: Rash, Lesions, Jaundice, Bruising, Itching, Dry, Breakdown, Nail Changes, Other Pulmonary: Denies: Dyspnea, Cough, Pleuritic Chest Pain, Other Symptoms Cardiovascular: Denies: Chest Pain, Palpitations, Orthopnea, Paroxysmal Noc. Dyspnea, Edema, Lt Headedness, Other Symptoms Gastrointestinal: Denies: Nausea, Vomiting, Abdominal Pain, Diarrhea, Constipation, Melena, Hematochezia, Other Symptoms Musculoskeletal: Denies: Neck Pain, Back Pain, Shoulder Pain, Arm Pain, Hand P ain, Leg Pain, Foot Pain, Joint Pain, Muscle Pain, Spasms, Other Symptoms Neurological: Denies: Weakness, Numbness, Incoordination, Change in speech, Confusion, Seizures, Other Symptoms Objective Physical Examination Neck Exam: Positive: Supple Chest Exam: Positive: Clear to auscultation, Normal air movement Heart Exam: Positive: Rate Normal, Normal S1, Normal S2 Abdomen Exam: Positive: Normal bowel sounds, Soft, Tenderness (, fairly mild tenderness on abdominal palpation) Extremity Exam: Positive: Normal pulses Skin Exam: Positive: Nl turgor and temperature Assessment /Plan Problems (1) Gall stone pancreatitis Status: Chronic Problem Text: Patient was seen and evaluated by Dr. Kapoor Patient had a ERCP done: Impression: - The entire biliary tree was mildly dilated, with a stone causing an obstruction. - Choledocholithiasis was found. Complete removal was accomplished by biliary sphincterotomy and balloon extraction. - A biliary sphincterotomy was performed. - The biliary tree was swept and nothing was found. - The examination was otherwise normal. Patient repeat KUB did show focal ileus but no SBO Patient is clinically much better today. Decreased nausea, vomiting, abdominal pain Patient still feels nauseous after eating small amount of fluid . Her WBC count is increased to 18,000 without fever Will repeat CT of the abdomen and pelvis with by mouth and IV contrast to rule out any abdominal etiology for leukocytosis Will start patient on IV Cipro and Flagyl for broad-spectrum coverage as patient is allergic to penicillin Further management depends on the repeat CT abdomen and pelvis report and lab work (2) Hypokalemia Status: Acute Problem Text: Is still potassium is very low of 2 large amount of potassium was supplemented was given yesterday, potassium level is 3.1 today Will give IV KCl 20 mEq and magnesium sulfate 1 g Repeat level at 7 PM today And repeat levels in a.m. Plan/VTE VTE Prophylaxis Ordered?: Yes VS, I&O, 24H, Fishbone Vital Signs/I&O Vital Signs Date Time Temp Pulse Resp B/P (MAP) Pulse Ox O2 Delivery O2 Flow Rate FiO2 12/10/19 08:42 74 119/66 12/10/19 08:41 18 12/10/19 06:54 Room Air 12/10/19 06:00 98.2 94 I&O- Last 24 Hours up to 6 AM 12/10/19 06:00 Intake Total 2640 ml Output Total 1200 ml Balance 1440 ml Laboratory Data 24H LABS Laboratory Tests 2 12/09/19 11:45: Anion Gap 7L, Glomerular Filtration Rate > 60.0, Calcium Level 7.8L, Magnesium Level 1.7L, Lipase 336 12/09/19 18:50: Anion Gap 9, Glomerular Filtration Rate > 60.0, Calcium Level 7.9L 12/10/19 06:19: Anion Gap 7L, Glomerular Filtration Rate > 60.0, Calcium Level 8.4L, Immature Granulocyte % (Auto) 0.8, Neutrophils (%) (Auto) 86.9H, Lymphocytes (%) (Auto) 6.1L, Monocytes (%) (Auto) 5.9H, Eosinophils (%) (Auto) 0.2, Basophils (%) (Auto) 0.1, Neutrophils # (Auto) 15.7H, Lymphocytes # (Auto) 1.1L, Monocytes # (Auto) 1.1H, Eosinophils # (Auto) 0.0, Basophils # (Auto) 0.0, Nucleated Red Blood Cells % (auto) 0.0, Total Bilirubin 0.9, Aspartate Amino Transf (AST/SGOT) 32, Alanine Aminotransferase (ALT/SGPT) 95H, Alkaline Phosphatase 213H, Total Protein 7.0, Albumin 3.2, Albumin/Globulin Ratio 0.84L CBC/BMP Laboratory Tests 12/09/19 11:45 12/09/19 18:50 12/10/19 06:19 JESSICA FINE MD Dec 10, 2019 09:12
[2019-12-10] MEDS: CIPROFLOXACIN 400 MG in IV 1 EA IV SCH ×2 (09:51→20:00)
[2019-12-10 10:00] VITALS: BP 140/79
[2019-12-10] MEDS ORDERED: ISOVUE-370 76% 100ML VIAL (Q9967) As Ordered ONE (10:11)
[2019-12-10] MEDS: ACETAMINOPHEN 650MG ER TAB (TYLENOL ARTHRITIS) PO PRN (12:56)
--- NOTE | 2019-12-10 13:14 | REP ---
CT ABDOMEN AND PELVIS WITH ORAL AND IV CONTRAST: TECHNIQUE: Axial contrast enhanced images from the lung bases to the pubic symphysis using 100 mL Isovue 370 intravenous contrast material with multiplanar reformations. Visualized lung bases demonstrate mild atelectatic changes with small effusions. The liver demonstrates no definite abnormality. The gallbladder demonstrates multiple gallstones. There does appear to be some degree of gallbladder wall thickening/edema. Spleen is normal in size with no intrinsic abnormality. The adrenal glands are normal. Mild to moderate edema surrounds the pancreas with probable inflammation and pancreatitis. No pseudocyst is seen. Pancreatic duct is mildly dilated particularly in the region of the pancreatic head, maximum diameter is approximately 6 mm. There appears to be a few small left renal cysts. There is no hydronephrosis. There is mild atherosclerotic calcification of the abdominal aorta without aneurysm. No significant adenopathy is seen. No free air is seen. There is mild free fluid in the pelvis. I see no bowel wall thickening. There is no evidence of bowel obstruction. No pelvic mass is seen. A tiny amount of air is seen in the urinary bladder likely from recent catheterization. There are degenerative changes of the spine. IMPRESSION: Mild bibasilar atelectatic change in the visualized lung bases with small bilateral pleural effusions. Multiple gallstones in the gallbladder with gallbladder wall edema. There are findings compatible with pancreatitis with no pseudocyst. There is mild dilatation of the pancreatic duct in the region of the pancreatic head. Mild free fluid in the pelvis. Electronically Signed by Mian Mayer MD 12/10/2019 04:04 P
[2019-12-10] MEDS ORDERED: KCL 10MEQ IN STERILE WATER 100ML As Ordered ONE ×2 (13:48→15:52)
[2019-12-10] MEDS: KCL 10MEQ/100ML SWI (KRUN) 10 MEQ in IV 1 EA IV SCH ×2 (13:58→15:54)
[2019-12-10 14:00] VITALS: BP 139/78
[2019-12-10] MEDS: NS 1,000 ML IV SCH (16:10)
[2019-12-10 18:00] VITALS: BP 119/60
[2019-12-10 19:59] LABS: BLOOD UREA NITROGEN 4 MG/DL (7-18); CALCIUM LEVEL 8.4 MG/DL (8.8-10.2); CARBON DIOXIDE LEVEL 30 MEQ/L (21-32); CHLORIDE LEVEL 94 MEQ/L (98-107); CREATININE FOR GFR 0.59 MG/DL (0.55-1.30); GLOMERULAR FILTRATION RATE > 60.0 (>39); GLUCOSE, FASTING 137 MG/DL (70-100); POTASSIUM SERUM 3.3 MEQ/L (3.5-5.1); SODIUM LEVEL 131 MEQ/L (136-145)
[2019-12-10] MEDS: LATANOPROST 0.005% OPHTH SOLN 2.5 ML OU SCH (19:59)
[2019-12-10] MEDS ORDERED: FLEET ENEMA PR PRN (20:00)
[2019-12-10] MEDS: ONDANSETRON 4MG/2ML VIAL (J2405) IV PRN (21:58)
[2019-12-10 22:00] VITALS: BP 121/75
[2019-12-11] MEDS: metroNIDAZOLE 500 MG in IV 1 EA IV SCH ×3 (00:43→18:25)
[2019-12-11] MEDS: MOM 30ML SUSPENSION UDC PO PRN (00:43)
[2019-12-11] MEDS: ACETAMINOPHEN 650MG ER TAB (TYLENOL ARTHRITIS) PO PRN ×2 (01:06→18:25)
[2019-12-11] MEDS ORDERED: POLYETHYLENE GLYCOL (MIRALAX) 238GM BOTTLE PO ONE (05:00)
[2019-12-11] MEDS ORDERED: NS 1,000 ML IV ONE (05:00)
[2019-12-11] MEDS ORDERED: SIMETHICONE 80 MG CHEW TAB PO PRN (05:00)
[2019-12-11] MEDS: LEVOTHYROXINE 112MCG TABLET (0.112MG) PO SCH (05:44)
[2019-12-11 06:00] VITALS: BP 125/76
[2019-12-11] MEDS ORDERED: MIRALAX *UNIT DOSE* 17GM PACKET PO ONE (06:15)
[2019-12-11] MEDS: MORPHINE 2 MG/ML 1ML VIAL (J2270) IV PRN ×2 (06:31→14:01)
[2019-12-11 06:36] VITALS: BP 134/69
[2019-12-11 06:40] LABS: BASO % 0.1 % (0.0-1.0); EOS % 0.3 % (0.0-3.0); HEMATOCRIT 30.1 % (36.0-47.0); HEMOGLOBIN 10.1 g/dl (12.0-15.5); LYMPH # 0.9 10^3/uL (1.5-5.0); MEAN CORPUSCULAR HEMOGLOBIN 29.5 pg (27.0-33.0); MEAN CORPUSCULAR HGB CONC 33.6 g/dl (32.0-36.5); MONO # 1.1 10^3/uL (0.0-0.8); MONO % 7.7 % (0.0-5.0); NEUTROPHILS # 12.2 10^3/uL (1.5-8.5); NEUTROPHILS % 85.4 % (36.0-66.0); PLATELET COUNT, AUTOMATED 237 10^3/uL (150-450); RED BLOOD COUNT 3.42 10^6/uL (4.00-5.40); WHITE BLOOD COUNT 14.2 10^3/uL (4.0-10.0)
[2019-12-11 07:07] LABS: ALBUMIN 2.8 GM/DL (3.2-5.2); ALT/SGPT 72 U/L (12-78); BILIRUBIN,TOTAL 0.9 MG/DL (0.2-1.0); BLOOD UREA NITROGEN 3 MG/DL (7-18); CALCIUM LEVEL 8.3 MG/DL (8.8-10.2); CARBON DIOXIDE LEVEL 31 MEQ/L (21-32); CHLORIDE LEVEL 92 MEQ/L (98-107); CREATININE FOR GFR 0.54 MG/DL (0.55-1.30); GLOMERULAR FILTRATION RATE > 60.0 (>39); GLUCOSE, FASTING 124 MG/DL (70-100); POTASSIUM SERUM 2.7 MEQ/L (3.5-5.1); SODIUM LEVEL 130 MEQ/L (136-145); TOTAL PROTEIN 6.2 GM/DL (6.4-8.2)
[2019-12-11] MEDS: hydroCHLOROthiazide 25 MG TAB PO SCH (09:31)
[2019-12-11] MEDS: SENOKOT S TAB PO SCH ×2 (09:31→21:06)
[2019-12-11] MEDS: OCUVITE 1 TAB PO SCH ×2 (09:31→21:06)
[2019-12-11] MEDS: NS 1,000 ML IV SCH (09:32)
[2019-12-11] MEDS: CIPROFLOXACIN 400 MG in IV 1 EA IV SCH ×2 (09:32→22:31)
[2019-12-11] MEDS: atenoloL 50 MG TAB PO SCH (09:32)
--- NOTE | 2019-12-11 09:33 | IPNPDOC ---
Subjective Date Seen The patient was seen on 12/11/19. Subjective Chief Complaint/HPI Patient is still complaining of right upper quadrant and left lower quadrant pain with occasional nausea General: Denies: ROS Unobtainable, Chills, Night Sweats, Fatigue, Malaise, Normal Appetite, Other Symptoms Constitutional: Denies: Chills, Fever, Malaise, Night Sweats, Weakness, Fatigue, Weight Loss, Lethargy, Other Eyes: Denies: Pain, Vision change, Conjunctivae inflammation, Eyelid inflammation, Redness, Other ENT: Denies: Head Aches, Ear Pain, Dysphagia, Sinus Congestion, Post Nasal Drip, Sore Throat, Epistaxis, Other Symptoms Cardiovascular: Denies: Chest Pain, Palpitations, Orthopnea, Paroxysmal Noc. Dyspnea, Edema, Lt Headedness, Other Symptoms Gastrointestinal: Reports: Nausea, Abdominal Pain Endocrine: Denies: Polydipsia, Polyphagia, Polyuria, Heat Intolerance, Cold In tolerance, Other Endocrine Sx Musculoskeletal: Denies: Neck Pain, Back Pain, Shoulder Pain, Arm Pain, Hand Pain, Leg Pain, Foot Pain, Joint Pain, Muscle Pain, Spasms, Other Symptoms Objective Physical Examination Neck Exam: Positive: Supple Chest Exam: Positive: Clear to auscultation, Normal air movement Heart Exam: Positive: Rate Normal, Normal S1, Normal S2 Abdomen Exam: Positive: Normal bowel sounds, Soft, Tenderness (. Positive tenderness in right upper quadrant under the rib cage) Extremity Exam: Positive: Normal pulses Skin Exam: Positive: Nl turgor and temperature Assessment /Plan Problems (1) Gall stone pancreatitis Status: Chronic Problem Text: Patient was seen and evaluated by Dr. Kapoor Patient had a ERCP done: Impression: - The entire biliary tree was mildly dilated, with a stone causing an obstruction. - Choledocholithiasis was found. Complete removal was accomplished by biliary sphincterotomy and balloon extraction. - A biliary sphincterotomy was performed. - The biliary tree was swept and nothing was found. - The examination was otherwise normal. Patient repeat KUB did show focal ileus but no SBO Patient is clinically much better today. Decreased nausea, vomiting, abdominal pain Patient was started on Cipro and Flagyl. WBC count is slightly decreased to 14.2 today. She is still afebrile but complaining of right upper quadrant pain CT of the abdomen and pelvis shows a acute pancreatitis and the multiple gall stones in the gallbladder with gallbladder wall edema Dr. Dunn was called and awaiting surgical consult has been requested for possible consideration for cholecystectomy We will also request GI consult with diuresis. Dr. Kapoor as well (2) Hypokalemia Status: Acute Problem Text: Patient's repeat potassium is 2.9 today. KCl 40 mEq has been ordered Will repeat potassium and magnesium level at 2 PM and supplemented more as needed Plan/VTE VTE Prophylaxis Ordered?: Yes VS, I&O, 24H, Fishbone Vital Signs/I&O Vital Signs Date Time Temp Pulse Resp B/P (MAP) Pulse Ox O2 Delivery O2 Flow Rate FiO2 12/11/19 06:41 18 12/11/19 06:36 78 134/69 (90) 12/11/19 06:00 97.7 95 Room Air I&O- Last 24 Hours up to 6 AM 12/11/19 06:00 Intake Total 2300 ml Output Total 1600 ml Balance 700 ml Laboratory Data 24H LABS Laboratory Tests 2 12/10/19 19:08: Anion Gap 7L, Glomerular Filtration Rate > 60.0, Calcium Level 8.4L 12/11/19 05:47: Anion Gap 7L, Glomerular Filtration Rate > 60.0, Calcium Level 8.3L, Immature Granulocyte % (Auto) 0.5, Neutrophils (%) (Auto) 85.4H, Lymphocytes (%) (Auto) 6.0L, Monocytes (%) (Auto) 7.7H, Eosinophils (%) (Auto) 0.3, Basophils (%) (Auto) 0.1, Neutrophils # (Auto) 12.2H, Lymphocytes # (Auto) 0.9L, Monocytes # (Auto) 1.1H, Eosinophils # (Auto) 0.0, Basophils # (Auto) 0.0, Nucleated Red Blood Cells % (auto) 0.0, Total Bilirubin 0.9, Aspartate Amino Transf (AST/SGOT) 27, Alanine Aminotransferase (ALT/SGPT) 72, Alkaline Phosphatase 183H, Total Protein 6.2L, Albumin 2.8L, Albumin/Globulin Ratio 0.82L CBC/BMP Laboratory Tests 12/10/19 19:08 12/11/19 05:47 JESSICA FINE MD Dec 11, 2019 09:33
[2019-12-11] MEDS: KCL 10MEQ/100ML SWI (KRUN) 10 MEQ in IV 1 EA IV SCH ×4 (11:46→20:10)
[2019-12-11 14:00] VITALS: BP 143/76
[2019-12-11 14:21] LABS: BLOOD UREA NITROGEN 2 MG/DL (7-18); CALCIUM LEVEL 8.3 MG/DL (8.8-10.2); CARBON DIOXIDE LEVEL 29 MEQ/L (21-32); CHLORIDE LEVEL 93 MEQ/L (98-107); CREATININE FOR GFR 0.61 MG/DL (0.55-1.30); GLOMERULAR FILTRATION RATE > 60.0 (>39); GLUCOSE, FASTING 137 MG/DL (70-100); MAGNESIUM LEVEL 2.1 MG/DL (1.8-2.4); POTASSIUM SERUM 2.9 MEQ/L (3.5-5.1); SODIUM LEVEL 131 MEQ/L (136-145)
[2019-12-11] MEDS ORDERED: KCL 10MEQ IN STERILE WATER 100ML As Ordered ONE ×2 (16:03→20:08)
[2019-12-11] MEDS: LATANOPROST 0.005% OPHTH SOLN 2.5 ML OU SCH (21:06)
[2019-12-11 22:00] VITALS: BP 141/77
[2019-12-12] MEDS: MORPHINE 2 MG/ML 1ML VIAL (J2270) IV PRN ×5 (00:26→22:31)
[2019-12-12] MEDS: NS 1,000 ML IV SCH (00:26)
[2019-12-12] MEDS: metroNIDAZOLE 500 MG in IV 1 EA IV SCH ×3 (00:26→16:39)
[2019-12-12] MEDS: ACETAMINOPHEN 650MG ER TAB (TYLENOL ARTHRITIS) PO PRN ×3 (02:43→20:58)
[2019-12-12] MEDS: LEVOTHYROXINE 112MCG TABLET (0.112MG) PO SCH (05:35)
[2019-12-12 06:00] VITALS: BP 150/74
[2019-12-12 06:15] LABS: BASO % 0.2 % (0.0-1.0); EOS # 0.1 10^3/uL (0.0-0.5); EOS % 1.1 % (0.0-3.0); HEMATOCRIT 31.9 % (36.0-47.0); HEMOGLOBIN 10.7 g/dl (12.0-15.5); LYMPH % 8.7 % (24.0-44.0); MEAN CORPUSCULAR HEMOGLOBIN 29.5 pg (27.0-33.0); MEAN CORPUSCULAR HGB CONC 33.5 g/dl (32.0-36.5); MEAN CORPUSCULAR VOLUME 87.9 fl (80.0-96.0); MONO # 1.1 10^3/uL (0.0-0.8); MONO % 9.9 % (0.0-5.0); NEUTROPHILS # 8.8 10^3/uL (1.5-8.5); NEUTROPHILS % 79.6 % (36.0-66.0); PLATELET COUNT, AUTOMATED 282 10^3/uL (150-450); RED BLOOD COUNT 3.63 10^6/uL (4.00-5.40); WHITE BLOOD COUNT 11.1 10^3/uL (4.0-10.0)
[2019-12-12 06:52] LABS: ALBUMIN 2.6 GM/DL (3.2-5.2); ALT/SGPT 55 U/L (12-78); BILIRUBIN,TOTAL 0.6 MG/DL (0.2-1.0); BLOOD UREA NITROGEN 2 MG/DL (7-18); CALCIUM LEVEL 8.2 MG/DL (8.8-10.2); CARBON DIOXIDE LEVEL 30 MEQ/L (21-32); CHLORIDE LEVEL 98 MEQ/L (98-107); GLOMERULAR FILTRATION RATE > 60.0 (>39); GLUCOSE, FASTING 117 MG/DL (70-100); POTASSIUM SERUM 2.9 MEQ/L (3.5-5.1); SODIUM LEVEL 135 MEQ/L (136-145); TOTAL PROTEIN 6.2 GM/DL (6.4-8.2)
[2019-12-12] MEDS ORDERED: POTASSIUM CHLORIDE 10 MEQ SR TABLET PO ONE ×2 (07:00→16:00)
[2019-12-12] MEDS: KCL 40MEQ in NS 1000ML 1,000 ML IV SCH (08:04)
[2019-12-12] MEDS: hydroCHLOROthiazide 25 MG TAB PO SCH (08:05)
[2019-12-12] MEDS: SENOKOT S TAB PO SCH ×2 (08:05→20:59)
[2019-12-12] MEDS: atenoloL 50 MG TAB PO SCH (08:05)
[2019-12-12] MEDS: OCUVITE 1 TAB PO SCH ×2 (08:05→20:58)
[2019-12-12] MEDS: CIPROFLOXACIN 400 MG in IV 1 EA IV SCH ×2 (09:22→20:59)
--- NOTE | 2019-12-12 10:35 | IPNPDOC ---
Subjective Date Seen The patient was seen on 12/12/19. Subjective Chief Complaint/HPI Comfortable in no distress is scheduled for surgery tomorrow for cholecystectomy General: Denies: ROS Unobtainable, Chills, Night Sweats, Fatigue, Malaise, Normal Appetite, Other Symptoms Constitutional: Denies: Chills, Fever, Malaise, Night Sweats, Weakness, Fatigue, Weight Loss, Lethargy, Other Pulmonary: Denies: Dyspnea, Cough, Pleuritic Chest Pain, Other Symptoms Cardiovascular: Denies: Chest Pain, Palpitations, Orthopnea, Paroxysmal Noc. Dyspnea, Edema, Lt Headedness, Other Symptoms Gastrointestinal: Reports: Abdominal Pain; Denies: Nausea, Vomiting, Diarrhea, Constipation, Melena, Hematochezia, Other Symptoms Endocrine: Denies: Polydipsia, Polyphagia, Polyuria, Heat Intolerance, Cold Intolerance, Other Endocrine Sx Musculoskeletal: Denies: Neck Pain, Back Pain, Shoulder Pain, Arm Pain, Hand Pain, Leg Pain, Foot Pain, Joint Pain, Muscle Pain, Spasms, Other Symptoms Neurological: Denies: Weakness, Numbness, Incoordination, Change in speech, Confusion, Seizures, Other Symptoms Objective Physical Examination Neck Exam: Positive: Supple Chest Exam: Positive: Clear to auscultation, Normal air movement Heart Exam: Positive: Rate Normal, Normal S1, Normal S2 Abdomen Exam: Positive: Normal bowel sounds, Soft, Tenderness (. Positive tenderness in right upper quadrant under the rib cage) Extremity Exam: Positive: Normal pulses Skin Exam: Positive: Nl turgor and temperature Assessment /Plan Problems (1) Gall stone pancreatitis Status: Chronic Problem Text: Patient was seen and evaluated by Dr. Kapoor Patient had a ERCP done: Impression: - The entire biliary tree was mildly dilated, with a stone causing an obstruction. - Choledocholithiasis was found. Complete removal was accomplished by biliary sphincterotomy and balloon extraction. - A biliary sphincterotomy was performed. - The biliary tree was swept and nothing was found. - The examination was otherwise normal. Patient repeat KUB did show focal ileus but no SBO Patient is clinically much better today. Decreased nausea, vomiting, abdominal pain Patient was started on Cipro and Flagyl. WBC count is slightly decreased to 14.2 today. She is still afebrile but complaining of right upper quadrant pain CT of the abdomen and pelvis shows a acute pancreatitis and the multiple gallstones in the gallbladder with gallbladder wall edema Patient was seen by Dr. Orantes yesterday and is scheduled for possible cholecystectomy in a.m. official report still pending Dr. Kapoor also saw the patient yesterday, but I don't have a follow-up report in the chart yet Continue present care, nothing by mouth from midnight (2) Hypokalemia Status: Acute Problem Text: Persistently low potassium levels KCl 40 mg by mouth 1 and will add KCl 40 mEq in 1 L of normal saline and 1 at the current dose of 70 mL per hour Repeat levels at 2 PM, correct as needed Plan/VTE VTE Prophylaxis Ordered?: Yes VS, I&O, 24H, Fishbone Vital Signs/I&O Vital Signs Date Time Temp Pulse Resp B/P (MAP) Pulse Ox O2 Delivery O2 Flow Rate FiO2 12/12/19 08:15 18 Room Air 12/12/19 08:05 78 128/62 12/12/19 06:00 98.3 95 I&O- Last 24 Hours up to 6 AM 12/12/19 06:00 Intake Total 3500 ml Output Total 3150 ml Balance 350 ml Laboratory Data 24H LABS Laboratory Tests 2 12/11/19 13:48: Anion Gap 9, Glomerular Filtration Rate > 60.0, Calcium Level 8.3L, Magnesium Level 2.1 12/12/19 05:55: Anion Gap 7L, Glomerular Filtration Rate > 60.0, Calcium Level 8.2L, Immature Granulocyte % (Auto) 0.5, Neutrophils (%) (Auto) 79.6H, Lymphocytes (%) (Auto) 8.7L, Monocytes (%) (Auto) 9.9H, Eosinophils (%) (Auto) 1.1, Basophils (%) (Auto) 0.2, Neutrophils # (Auto) 8.8H, Lymphocytes # (Auto) 1.0L, Monocytes # (Auto) 1.1H, Eosinophils # (Auto) 0.1, Basophils # (Auto) 0.0, Nucleated Red Blo od Cells % (auto) 0.0, Total Bilirubin 0.6, Aspartate Amino Transf (AST/SGOT) 14, Alanine Aminotransferase (ALT/SGPT) 55, Alkaline Phosphatase 179H, Total Protein 6.2L, Albumin 2.6L, Albumin/Globulin Ratio 0.72L CBC/BMP Laboratory Tests 12/11/19 13:48 12/11/19 19:44 12/12/19 05:55 JESSICA FINE MD Dec 12, 2019 10:35
[2019-12-12 14:00] VITALS: BP 162/79
[2019-12-12 16:00] VITALS: BP 146/72
--- NOTE | 2019-12-12 19:00 | CR ---
DATE OF CONSULTATION: 12/11/2019 REASON FOR CONSULTATION: Gallstones with recent gallstone pancreatitis. HISTORY OF PRESENT ILLNESS: The patient is a 74-year-old woman who apparently had presented at [facility] on 12/04/2019 with complaints of upper abdominal pain, particularly in the right upper quadrant, associated with some nausea. She had reported several prior short-term episodes of similar pains in the right upper quadrant. She was evaluated with an ultrasound that confirmed cholelithiasis, and she was found to have a lipase of 577. A magnetic resonance cholangiopancreatography (MRCP) was obtained, which revealed a common bile duct stone. As there was no opportunity for an endoscopic retrograde cholangiopancreatography (ERCP) at [facility], she was transferred to [facility]. She underwent an ERCP by Dr. Kapoor on 12/06/2019. On 12/07/2019, her lipase was noted to be 13,496 consistent with an exacerbation of her gallstone pancreatitis. Over the ensuing several days, her lipase returned toward normal, which was reached in the late morning of 12/09/2019. She has noted some persistent upper abdominal pain, which is worsened when she eats. She has been advanced to a full liquid diet now. Her most recent labs show a persistent elevation of her white blood cell count into the mid teens with 85% neutrophils on her labs today. The lipase is normal, and she has a slight elevation of her alkaline phosphatase still. She underwent a CT scan of the abdomen and pelvis on 12/10/2019, and this revealed multiple gallstones within the gallbladder as well as some degree of gallbladder wall thickening or edema. I was, therefore, asked to evaluate the patient regarding timing for cholecystectomy. MEDICATIONS: Currently, the patient's medications include Tylenol, atenolol, hydrochlorothiazide, Synthroid, a multivitamin, Xalatan eye drops, promethazine as needed, Zofran as needed, morphine IV as needed, Senokot-S, magnesium, hydroxide or milk of magnesia as needed, ciprofloxacin, and metronidazole and she had a Fleet enema yesterday. ALLERGIES: The patient reports an allergy to PENICILLIN. SURGICAL HISTORY: Significant for a tubal ligation and a left rotator cuff procedure. She actually has had apparently bilateral rotator cuff repairs. MEDICAL HISTORY: Significant for hypertension. She carries a diagnosis of gout. She has dyslipidemia and hypothyroidism. She also has glaucoma. FAMILY HISTORY: Significant for diabetes and heart disease and cirrhosis. SOCIAL HISTORY: She is a former smoker but quit many years ago. REVIEW OF SYSTEMS: Reveals no history of chest pain or palpitations. She has had no cough, wheezing or sputum production. She has not had a seizure or stroke. Denies any history of deep vein thrombosis (DVT) or pulmonary embolus. She had no urinary symptoms and no significant orthopedic issues recently. She has not had any melena or hematochezia. PHYSICAL EXAM: Reveals a pleasant woman lying quietly on the hospital bed. She moves readily when I ask her to move to a back lying position so I could examine her. She does not appear to have significant discomfort at present. Skin: Warm and dry. Sclerae are anicteric. Neck is supple. Heart: Exam shows a regular rhythm. Lungs: The lungs are clear. Abdomen: The abdomen is mildly obese. She has bowel sounds present. There is no tympany to percussion on examination. On palpation, there is some mild to moderate direct tenderness across the right subcostal area in the expected location of her gallbladder. Does not have any direct tenderness in her mid epigastrium or left upper quadrant. There is no evident hernia. Extremities are without peripheral edema. Laboratory studies today show a sodium of 131, potassium 2.9, chloride 93, CO2 of 29, BUN of 2, creatinine 0.6 and a glucose of 137. The magnesium was 2.1. Total bilirubin is 0.9, AST 27, ALT 72 and an alkaline phosphatase of 183. CBC showed a white count of 14,000 with 85% neutrophils, 6% lymphocytes and 8% monocytes. Hemoglobin was 10 with a hematocrit of 30 and platelet count is 237,000. Her CT scan imaging I reviewed independently. She certainly has stones in the gallbladder. There is some marge-pancreatic infiltration. There does appear to be some thickening of the gallbladder wall consistent with acute cholecystitis. IMPRESSION: 1. Cholelithiasis with recent choledocholithiasis and biliary pancreatitis. 2. Post ERCP pancreatitis. 3. Probable acute cholecystitis. 4. Hypertension. 5. Hypothyroidism. 6. Obesity. 7. Dyslipidemia. 8. Gout. 9. Glaucoma. RECOMMENDATIONS: At this point, I think her symptoms are largely related to acute cholecystitis. She has a persistently mildly elevated white blood cell count, which could be secondary to the pancreatitis or to acute cholecystitis. She is on antibiotics, and I believe that is appropriate for her gallbladder. Her liver function tests have returned basically to normal. I think it would be reasonable to proceed with a laparoscopic cholecystectomy within the next 1-2 days. This is a little later than we might wish from the point of view of her acute cholecystitis, but I think that this would be preferable to other approaches. The patient is agreeable with a plan to remove her gallbladder within the next couple of days. We should work to correct her hypokalemia in the interim.
[2019-12-12] MEDS: LATANOPROST 0.005% OPHTH SOLN 2.5 ML OU SCH (20:59)
[2019-12-12 22:00] VITALS: BP 144/81
[2019-12-13] VITALS (8 sets, daily range): BP systolic 114–160; BP diastolic 56–80
[2019-12-13] MEDS: metroNIDAZOLE 500 MG in IV 1 EA IV SCH ×3 (01:16→17:36)
[2019-12-13] MEDS: MORPHINE 2 MG/ML 1ML VIAL (J2270) IV PRN ×3 (02:34→11:32)
[2019-12-13] MEDS: KCL 40MEQ in NS 1000ML 1,000 ML IV SCH (02:35)
[2019-12-13] MEDS: ACETAMINOPHEN 650MG ER TAB (TYLENOL ARTHRITIS) PO PRN ×2 (05:10→22:56)
[2019-12-13] MEDS: LEVOTHYROXINE 112MCG TABLET (0.112MG) PO SCH (06:37)
[2019-12-13 07:03] LABS: BASO % 0.3 % (0.0-1.0); EOS # 0.3 10^3/uL (0.0-0.5); HEMATOCRIT 34.4 % (36.0-47.0); HEMOGLOBIN 11.4 g/dl (12.0-15.5); LYMPH # 1.2 10^3/uL (1.5-5.0); MEAN CORPUSCULAR HEMOGLOBIN 29.8 pg (27.0-33.0); MEAN CORPUSCULAR HGB CONC 33.1 g/dl (32.0-36.5); MEAN CORPUSCULAR VOLUME 89.8 fl (80.0-96.0); MONO # 1.2 10^3/uL (0.0-0.8); MONO % 9.7 % (0.0-5.0); NEUTROPHILS # 9.4 10^3/uL (1.5-8.5); NEUTROPHILS % 77.3 % (36.0-66.0); PLATELET COUNT, AUTOMATED 329 10^3/uL (150-450); RED BLOOD COUNT 3.83 10^6/uL (4.00-5.40); WHITE BLOOD COUNT 12.2 10^3/uL (4.0-10.0)
[2019-12-13 07:33] LABS: ALBUMIN 2.8 GM/DL (3.2-5.2); ALT/SGPT 50 U/L (12-78); BILIRUBIN,TOTAL 0.5 MG/DL (0.2-1.0); BLOOD UREA NITROGEN 5 MG/DL (7-18); CALCIUM LEVEL 9.2 MG/DL (8.8-10.2); CARBON DIOXIDE LEVEL 29 MEQ/L (21-32); CHLORIDE LEVEL 100 MEQ/L (98-107); CREATININE FOR GFR 0.61 MG/DL (0.55-1.30); GLOMERULAR FILTRATION RATE > 60.0 (>39); GLUCOSE, FASTING 93 MG/DL (70-100); POTASSIUM SERUM 4.1 MEQ/L (3.5-5.1); SODIUM LEVEL 134 MEQ/L (136-145); TOTAL PROTEIN 6.5 GM/DL (6.4-8.2)
--- NOTE | 2019-12-13 08:27 | IPN ---
DATE: 12/12/2019 HISTORY: The patient was admitted with gallstone pancreatitis and had an ERCP on the 06 of December. She developed more severe pancreatitis post procedure. This has been gradually resolving but she has had a persistent mildly elevated white blood cell count and abdominal pain which is a worse following meals. A CT scan on the suggested some gallbladder wall thickening suggestive of possible acute cholecystitis. She has been maintained on antibiotics since. I saw her yesterday in consultation and we have discussed proceeding with a cholecystectomy during this hospital stay. Vital signs: Show that she has been afebrile over the past 24 hours. Pulse is in the 60s to 70s and her blood pressure is good with a normal oxygen saturation. Intake and output shows that yesterday she had 2750 in with 3700 out. PHYSICAL EXAMINATION: The patient is alert and oriented. She reports that she is still having some discomfort which is primarily in the right upper quadrant. Heart exam shows a regular rhythm and the lungs are clear. The abdomen is mildly full. She has bowel sounds present. Palpation reveals some mild to moderate direct tenderness in the right subcostal area at about the midclavicular line. The epigastrium and left upper quadrant are without significant tenderness on palpation. Laboratory studies show a white count of 11, hemoglobin of 11, hematocrit of 32 and a platelet count of 282,000. Differential count shows that her neutrophil count is down to 80%. Her chemistry profile shows that she remains slightly hypokalemia at 2.9 in the morning and 3.2 later in the afternoon. Her electrolytes are otherwise without significant abnormality. IMPRESSION: Cholelithiasis with acute cholecystitis and recent gallstone pancreatitis. PLAN: The patient has been added onto the OR schedule for the 13 of December. She was counseled for a laparoscopic cholecystectomy to include the indications for the procedure and the risk. She had an opportunity to ask questions. She desires to proceed and we will plan on going ahead in the afternoon of 13 of December. MICHAEL
[2019-12-13] MEDS: SENOKOT S TAB PO SCH ×2 (08:59→21:16)
[2019-12-13] MEDS: atenoloL 50 MG TAB PO SCH (08:59)
[2019-12-13] MEDS: hydroCHLOROthiazide 25 MG TAB PO SCH (08:59)
[2019-12-13] MEDS: OCUVITE 1 TAB PO SCH ×2 (08:59→21:16)
[2019-12-13] MEDS: CIPROFLOXACIN 400 MG in IV 1 EA IV SCH ×2 (10:28→21:16)
[2019-12-13] MEDS: NS 1,000 ML IV SCH ×2 (11:36→17:36)
[2019-12-13] MEDS ORDERED: BUPIVACAINE HCL 0.25% 30 ML VIAL As Ordered ONE (11:57)
[2019-12-13] MEDS ORDERED: SCOPOLAMINE 1MG TRANSDERMAL PATCH As Ordered ONE (12:33)
[2019-12-13] MEDS ORDERED: METOCLOPRAMIDE INJ 10MG/2ML VIAL (J2765) As Ordered ONE (13:28)
[2019-12-13] MEDS ORDERED: propofoL 200 MG/20 ML VIAL As Ordered ONE (13:28)
[2019-12-13] MEDS ORDERED: ROCURONIUM BROMIDE 50 MG/5 ML VIAL As Ordered ONE ×2 (13:28→13:52)
[2019-12-13] MEDS ORDERED: dexameTHASONE 4 MG/ML 1ML VIAL (J1100) As Ordered ONE (13:28)
[2019-12-13] MEDS ORDERED: fentaNYL 250 MCG/5 ML INJECTION (J3010) As Ordered ONE (13:28)
[2019-12-13] MEDS ORDERED: ONDANSETRON 4MG/2ML VIAL (J2405) As Ordered ONE ×2 (13:28→15:24)
[2019-12-13] MEDS ORDERED: LIDOCAINE 2% INJ 100 MG/5 ML SDV (FOR ANES.) As Ordered ONE (13:28)
[2019-12-13] MEDS ORDERED: SUGAMMADEX SODIUM 500 MG/5 ML VIAL (BRIDION) As Ordered ONE (13:28)
[2019-12-13] MEDS ORDERED: MIDAZOLAM INJ 2 MG/2 ML VIAL (J2250) As Ordered ONE (13:28)
[2019-12-13] MEDS ORDERED: PHENYLephrine HCL 500 MCG/5 ML (100MCG/ML) SYRINGE (J2370) As Ordered ONE (13:53)
[2019-12-13] MEDS ORDERED: ePHEDrine SULFATE 25 MG/5 ML(5MG/ML) SYRINGE As Ordered ONE (14:04)
[2019-12-13] MEDS ORDERED: NORCO, ANEXSIA 5/325MG TABLET (HYDROcodone/ACETAMINOPHEN) PO PRN (15:00)
[2019-12-13] MEDS ORDERED: PERCOCET 5MG/325MG TAB As Ordered ONE ×2 (15:25→16:30)
[2019-12-13] MEDS ORDERED: ONDANSETRON 4MG/2ML VIAL (J2405) IV PRN (15:30)
[2019-12-13] MEDS ORDERED: fentaNYL 100 MCG/2 ML INJECTION (J3010) IV PRN (15:30)
[2019-12-13] MEDS ORDERED: LR 1,000 ML IV SCH (15:30)
[2019-12-13] MEDS: PERCOCET 5MG/325MG TAB PO PRN ×2 (15:30→16:31)
[2019-12-13] MEDS ORDERED: METOCLOPRAMIDE INJ 10MG/2ML VIAL (J2765) IV PRN (15:30)
--- NOTE | 2019-12-13 19:05 | IPNPDOC ---
Date Seen The patient was seen on 12/13/19. Progress Note SUBJECTIVE: 74 y.o female w/ PMH of HTN, HLD & Hypothyroidism was transferred from another facility for choledocholithiasis requiring ERCP. She was seen in the morning, she reports significant improvement in nausea & abdominal pain. She reports minimal symptoms at this time, nearly close to her baseline. She was evaluated by Dr. Kapoor overnight and scheduled for ERCP later today. She denies any chest pain, vomiting, abdominal pain, diarrhea or constipation. 12/13/19 In the interim patient underwent ERCP with removal of choledocholithiasis, subsequent worsening of pancreatitis, repeat CAT scan of the abdomen showed edema of the gallbladder, evaluated by general surgery and plan for c holecystectomy later today. Patient continues to have epigastric/right upper quadrant abdominal pain, denies any nausea, vomiting, shortness of breath, chest pain or diarrhea at this time. 10 point review of system is negative except for above PHYSICAL EXAMINATION: VITAL SIGNS: Please see below. GENERAL: No distress HEENT: Normocephalic, atraumatic, moist mucous membranes NECK: Supple CARDIOVASCULAR EXAMINATION: S1, S2, no murmurs RESPIRATORY EXAMINATION: Clear to auscultation, no wheezing ABDOMINAL EXAMINATION: Soft, epigastric and right upper quadrant tenderness, nondistended, positive bowel sounds EXTREMITIES: Range of motion intact SKIN: No rash NEUROLOGICAL EXAMINATION: Alert and oriented 3, no focal deficits PSYCHIATRIC EXAMINATION: Calm and cooperative LABORATORY DATA, IMAGING STUDIES, MICROBIOLOGY: Please see below. ASSESSMENT AND PLAN: 74-year-old female with past medical history of hypertension, hyperlipidemia and hypothyroidism, presented from another facility with choledocholithiasis for an ERCP. PROBLEMS: 1. Acute cholecystitis: Continue Cipro and Flagyl for the perioperative period, plan for cholecystectomy today, pain control, IV fluids. 2. Hypertension: Continue atenolol and hydrochlorothiazide. 3. Hypothyroidism: Continue levothyroxine. 4. Acute pancreatitis: Secondary to choledocholithiasis, status post removal of stone via ERCP, continue IV hydration. DVT prophylaxis: SCD/TEDs GI prophylaxis: Not needed at this time VS, I&O, 24H, Fishbone Vital Signs/I&O Vital Signs Date Time Temp Pulse Resp B/P (MAP) Pulse Ox O2 Delivery O2 Flow Rate FiO2 12/13/19 18:10 98.8 70 14 115/64 (81) 96 Room Air 12/13/19 15:15 3 I&O- Last 24 Hours up to 6 AM 12/13/19 06:00 Intake Total 1380 ml Output Total 3350 ml Balance -1970 ml Laboratory Data 24H LABS Laboratory Tests 2 12/13/19 06:47: Immature Granulocyte % (Auto) 0.7, Neutrophils (%) (Auto) 77.3H, Lymphocytes (%) (Auto) 10.0L, Monocytes (%) (Auto) 9.7H, Eosinophils (%) (Auto) 2.0, Basophils (%) (Auto) 0.3, Neutrophils # (Auto) 9.4H, Lymphocytes # (Auto) 1.2L, Monocytes # (Auto) 1.2H, Eosinophils # (Auto) 0.3, Basophils # (Auto) 0.0, Nucleated Red Blood Cells % (auto) 0.0, Anion Gap 5L, Glomerular Filtration Rate > 60.0, Calcium Level 9.2, Total Bilirubin 0.5, Aspartate Amino Transf (AST/SGOT) 26, Alanine Aminotransferase (ALT/SGPT) 50, Alkaline Phosphatase 169H, Total Protein 6.5, Albumin 2.8L, Albumin/Globulin Ratio 0.76L CBC/BMP Laboratory Tests 12/13/19 06:47 MARK HERMAN MD Dec 13, 2019 19:05
[2019-12-13] MEDS: LATANOPROST 0.005% OPHTH SOLN 2.5 ML OU SCH (21:16)
--- NOTE | 2019-12-13 21:24 | ECGEPIP ---
[facility] Test Date: 2019-12-13 Pat Name: MEDINA ARCOS Department: Room: [place] [address] Gender: Female [employer]k Tank Driver: RIYA : 1945 Requested By: Eloy Woods Order Number: [id number] Reading MD: Reji Noble Measurements Intervals [place] Rate: 62 P: 20 RI: 218 QRS: 6 QRSD: 89 T: 18 QT: 397 QTc: 405 Interpretive Statements SINUS RHYTHM WITH FIRST DEGREE AV BLOCK Comparison tracing not on file Electronically Signed on 12-13-2019 21:24:31 EST by Reji Noble
[2019-12-14] MEDS: metroNIDAZOLE 500 MG in IV 1 EA IV SCH ×2 (01:30→08:31)
[2019-12-14 02:00] VITALS: BP 103/52
[2019-12-14] MEDS: NS 1,000 ML IV SCH (05:58)
[2019-12-14] MEDS: LEVOTHYROXINE 112MCG TABLET (0.112MG) PO SCH (05:58)
[2019-12-14 06:00] VITALS: BP 112/59
[2019-12-14] MEDS ORDERED: CIPROFLOXACIN 500 MG TAB PO SCH (06:00)
[2019-12-14 06:11] LABS: HEMATOCRIT 33.9 % (36.0-47.0); HEMOGLOBIN 10.8 g/dl (12.0-15.5); MEAN CORPUSCULAR HEMOGLOBIN 28.8 pg (27.0-33.0); MEAN CORPUSCULAR HGB CONC 31.9 g/dl (32.0-36.5); MEAN CORPUSCULAR VOLUME 90.4 fl (80.0-96.0); PLATELET COUNT, AUTOMATED 366 10^3/uL (150-450); RED BLOOD COUNT 3.75 10^6/uL (4.00-5.40); WHITE BLOOD COUNT 9.5 10^3/uL (4.0-10.0)
[2019-12-14 06:39] LABS: ALBUMIN 2.8 GM/DL (3.2-5.2); ALT/SGPT 59 U/L (12-78); BILIRUBIN,TOTAL 0.5 MG/DL (0.2-1.0); BLOOD UREA NITROGEN 8 MG/DL (7-18); CALCIUM LEVEL 8.3 MG/DL (8.8-10.2); CARBON DIOXIDE LEVEL 25 MEQ/L (21-32); CHLORIDE LEVEL 102 MEQ/L (98-107); CREATININE FOR GFR 0.66 MG/DL (0.55-1.30); GLOMERULAR FILTRATION RATE > 60.0 (>39); GLUCOSE, FASTING 100 MG/DL (70-100); PHOSPHORUS LEVEL 2.5 MG/DL (2.5-4.9); POTASSIUM SERUM 3.8 MEQ/L (3.5-5.1); SODIUM LEVEL 136 MEQ/L (136-145); TOTAL PROTEIN 6.4 GM/DL (6.4-8.2)
--- NOTE | 2019-12-14 08:23 | RO ---
DATE OF PROCEDURE: 12/13/2019 PREOPERATIVE DIAGNOSIS: Cholelithiasis with acute cholecystitis and recent gallstone pancreatitis. POSTOPERATIVE DIAGNOSIS: Cholelithiasis with chronic cholecystitis and recent gallstone pancreatitis. PROCEDURE PERFORMED: Laparoscopic cholecystectomy. SURGEON: Dr. Dunn ANESTHESIA: General. INDICATIONS FOR THE PROCEDURE: The patient is a 74-year-old woman who was admitted on the 05 of December with upper abdominal pain. She was found to have gallstones by ultrasound and a common bile duct stone by MRI. She underwent an ERCP. She had a mild to moderate elevation of her lipase pre ERCP but evidence for pancreatitis post ERCP. She has gradually been resolving her discomfort but has had a persistent mild elevated white blood cell count and tenderness in the right upper quadrant. A CT scan suggested gallbladder wall thickening consistent with acute cholecystitis and she is now for laparoscopic cholecystectomy. OPERATIVE PROCEDURE: The patient was placed on the operating table in a supine position. She was placed under general endotracheal anesthesia. The patient's abdomen was prepped and draped in a sterile fashion. 0.25% Marcaine was infiltrated at the trocar sites. A short transverse incision was made in the left upper quadrant and a Veress needle was inserted. After a positive hanging drop test the abdomen was insufflated with carbon dioxide gas. A 5-mm port was placed over a 5 mm 33 scope and this was advanced through the abdominal wall without difficulty. The laparoscope was placed. Initial examination showed some prominence of the stomach which appeared to be filled with air. The liver appeared normal. The gallbladder was partially seen and did not appear to be tensely distended. There was no acute inflammation though the gallbladder wall was somewhat thickened. An 11-mm port was placed just above the umbilicus along the midline. Two 5 mm ports were then placed in the right upper quadrant. The patient was tilted to a reverse Trendelenburg position and rolled slightly to the left. Graspers were inserted in the gallbladder was grasped and elevated. Again the gallbladder was slightly thickened but not acutely inflamed. There were evident stones within the gallbladder. There was some inflammatory change around the top edge of the duodenum at the edge of the liver consistent with inflammation from her recent pancreatitis. The tissues around the gallbladder neck were opened using the hook cautery. With careful dissection through these tissues the cystic duct and cholecystic artery were both identified. The cystic duct was doubly clipped with hemoclips and divided. The cholecystic artery was then doubly clipped with hemoclips and divided. The gallbladder was dissected free from the gallbladder bed using the hook cautery. The gallbladder was placed in an Endopouch. The right upper quadrant was irrigated and inspected. There was no bleeding and no bile leak. The patient was returned to a flat position. The abdomen was deflated and the trocars were removed. The gallbladder was recovered through the supraumbilical site. There were perhaps a half dozen small to medium-size stones within the gallbladder. This was sent for permanent pathology. The fascia at the supraumbilical site was closed with interrupted simple sutures of 2-0 Vicryl. The skin incisions were all closed with buried 4-0 Vicryl and Steri-Strips. Light dressings were applied. The patient tolerated the procedure well without apparent complication. She was awakened in the operating room, extubated and moved to the recovery room in stable condition.
[2019-12-14 08:33] VITALS: BP 135/65
[2019-12-14] MEDS: atenoloL 50 MG TAB PO SCH (08:33)
[2019-12-14] MEDS: SENOKOT S TAB PO SCH ×2 (08:33→08:35)
[2019-12-14] MEDS: hydroCHLOROthiazide 25 MG TAB PO SCH (08:33)
[2019-12-14] MEDS: OCUVITE 1 TAB PO SCH (08:34)
[2019-12-14] MEDS: ACETAMINOPHEN 650MG ER TAB (TYLENOL ARTHRITIS) PO PRN (09:41)
[2019-12-14] MEDS ORDERED: CIPR-249 PO (12:44)
[2019-12-14] MEDS ORDERED: FLAG500T PO (12:44)
[2019-12-14] MEDS ORDERED: metroNIDAZOLE (FLAGYL) 500 MG TAB PO SCH (14:00)
--- NOTE | 2019-12-14 15:52 | DS.PDOC ---
Discharge Summary General Date of Admission Dec 05, 2019 at 18:24 Date of Discharge 12/14/19 Attending Physician: MARK HERMAN MD Discharge Summary PROCEDURES PERFORMED DURING STAY: None. ADMITTING DIAGNOSES: 1. Choledocholithiasis, gallstone pancreatitis, cholecystitis. DISCHARGE DIAGNOSES: 1. Choledocholithiasis, gallstone pancreatitis, cholecystitis. COMPLICATIONS/CHIEF COMPLAINT: Gallstone Pancreatitis. HISTORY OF PRESENT ILLNESS: 74-year-old female with past medical history of hyperlipidemia and hypertension was admitted with gallstone pancreatitis, underwent ERCP with removal of gallstones from the common bile duct. Her pancreatitis subsequently worsened, possibly due to ERCP, she remained on ciprofloxacin and Flagyl during her hospitalization. She had a repeat CAT scan of the abdomen, pelvis due to persistent right upper quadrant epigastric abdominal pain and inability to tolerate oral intake. It showed swelling and inflammation of the gallbladder, underwent cholecystectomy yesterday, no complications, significant improvement in symptoms today. She was able to eat breakfast without any difficulty, reports minimal abdominal discomfort at this time, no other complaints. She has been cleared by general surgery for discharge. She will be discharged on ciprofloxacin and Flagyl to be taken for 2 more days. She is clinically hemodynamically stable for discharge and outpatient follow-up with general surgery. GI and PCP. HOSPITAL COURSE: As above. DISCHARGE MEDICATIONS: Please see below. ALLERGIES: Please see below. PHYSICAL EXAMINATION: VITAL SIGNS: Please see below. GENERAL: No distress HEENT: Normocephalic, atraumatic, moist mucous membranes NECK: Supple CARDIOVASCULAR EXAMINATION: S1, S2, no murmurs RESPIRATORY EXAMINATION: Clear to auscultation, no wheezing ABDOMINAL EXAMINATION: Soft, mild abdominal tenderness, nontender, nondistended, positive bowel sounds EXTREMITIES: Range of motion intact SKIN: No rash NEUROLOGICAL EXAMINATION: Alert and oriented 3, no focal deficits PSYCHIATRIC EXAMINATION: Calm and cooperative LABORATORY DATA: Please see below. PROGNOSIS: Fair ACTIVITY: As tolerated. DIET: Cardiac DISCHARGE PLAN: Follow-up with general surgery, GI and PCP in 1 to 2 weeks DISPOSITION: 01 Home, Self-Care. DISCHARGE INSTRUCTIONS: 1. As above. DISCHARGE CONDITION: Stable. TIME SPENT ON DISCHARGE: Greater than 32 minutes. Vital Signs/I&Os Vital Signs Date Time Temp Pulse Resp B/P (MAP) Pulse Ox O2 Delivery O2 Flow Rate FiO2 12/14/19 10:00 98.5 70 18 98 Nasal Cannula 12/14/19 08:33 135/65 12/13/19 15:15 3 I&O- Last 24 Hours up to 6 AM 12/14/19 06:00 Intake Total 3320 ml Output Total 1410 ml Balance 1910 ml Laboratory Data Labs 24H Laboratory Tests 2 12/14/19 05:24: Nucleated Red Blood Cells % (auto) 0.0, Anion Gap 9, Glomerular Filtration Rate > 60.0, Calcium Level 8.3L, Phosphorus Level 2.5, Magnesium Level 2.0, Total Bilirubin 0.5, Aspartate Amino Transf (AST/SGOT) 44H, Alanine Aminotransferase (ALT/SGPT) 59, Alkaline Phosphatase 174H, Total Protein 6.4, Albumin 2.8L, Albumin/Globulin Ratio 0.78L CBC/BMP Laboratory Tests 12/14/19 05:24 Discharge Medications Scheduled Atenolol (Atenolol) 50 Mg Tablet, 50 MG PO DAILY, (Reported) Ciprofloxacin HCl (Cipro) 500 Mg Tablet, 500 MG PO BID@18 Hydrochlorothiazide (Hydrochlorothiazide) 25 Mg Tablet, 25 MG PO DAILY, (Reported) Latanoprost/Pf (Latanoprost 0.005% Eye Drop) 7.5 Ml Drops, 1 DROP OU QHS, (Reported) Levothyroxine Sodium (Synthroid) 112 Mcg Tablet, 112 MCG PO DAILY, (Reported) Metronidazole (Flagyl) 500 Mg Tablet, 500 MG PO Q8H Vit A/Vit C/Vit E/Zinc/Copper (Preservision Areds Softgel) 1 Each Capsule, 1 CAP PO BID, (Reported) Allergies Coded Allergies: Penicillins (Verified Allergy, Intermediate, rash, redness, 12/05/19) MARK HERMAN MD Dec 14, 2019 15:52
--- NOTE | 2019-12-15 10:08 | IPN ---
DATE: 12/14/2019 HISTORY: The patient is now postop day #1 from a laparoscopic cholecystectomy for cholelithiasis and biliary pancreatitis. The patient reports that she feels well with little to no pain. She has been taking a regular diet without difficulty. Vital signs show that she has been afebrile since surgery. Her pulse is in the 50s and 60s. Blood pressure is excellent and her room air oxygen saturation is normal. Intake and Output shows that she had 3500 mL in yesterday with 3000 mL out. PHYSICAL EXAM: The patient is sitting up in her bed looking quite comfortable. She is alert and oriented. Heart and lung exam is unremarkable. The abdomen is soft and nondistended. She has bowel sounds present. Her dressings are dry. Laboratory studies today show white count of 9, hemoglobin of 11, hematocrit 34 and a platelet count of 366,000. Chemistry profile shows a sodium of 136, potassium 3.8, chloride 102, CO2 of 25, BUN of 8, creatinine 0.66 and a glucose of 100. Her liver function tests are normal with the minimal exceptions of an AST of 44 and an alkaline phosphatase of 174. IMPRESSION: The patient is doing very well one day postop from her laparoscopic cholecystectomy. RECOMMENDATIONS: At this point, I think it would be reasonable for her to be discharged home today. She is clearly not having any problems postop and her labs have been returning toward normal for several days now. If she is discharged today, I would want to see her back in the office in the next 10-14 days for a routine postop check. MICHAEL
== END 2019-12-14 14:47 | disposition home or self-care (01) | DRG 444 ==
LOC: M MSPAV 18:24
PROVIDERS: ADMIT Internal Medicine Nephrology; ATTEND Internal Medicine
PROC: 0FC98ZZ Extirpation of Matter from Common Bile Duct, Via Natural or Artificial Opening Endoscopic (ICD-10-PCS; principal; 2019-12-06 16:00)
DX: K80.51 Calculus of bile duct without cholangitis or cholecystitis with obstruction (principal); K85.10 Biliary acute pancreatitis without necrosis or infection; K56.7 Ileus, unspecified; E87.6 Hypokalemia; E78.5 Hyperlipidemia, unspecified; I10 Essential (primary) hypertension; Z79.899 Other long term (current) drug therapy; Z88.0 Allergy status to penicillin; E03.9 Hypothyroidism, unspecified; M10.9 Gout, unspecified; Z87.891 Personal history of nicotine dependence; E66.9 Obesity, unspecified; Z68.31 Body mass index [BMI] 31.0-31.9, adult; H40.9 Unspecified glaucoma

== ENCOUNTER 2024-07-18 12:16 | Day surgery (SDC) | payer MEDICARE, OTHER ==
[~2024-07-18] VITALS: Ht 154.9 cm; Wt 71.9 kg
[~2024-07-18 12:16] MED LIST: ATEN50TA2 PO; CIPR-249 PO; FLAG500T PO; HYDR-3490 PO; LATA0.0015 OU; LR 1,000 ML IV SCH; METR1INJ2 IV; PRESCAP PO; SYNT112T2 PO; XALA0.007 OU; [UNRECOGNIZED DRUG - CODE] IV
[2024-07-18] MEDS: PHENYLEPHRINE 2.5% OPHTH SOL 2ML OD SCH (13:17)
[2024-07-18] MEDS: ATROPINE SULFATE 1% OPHTH SOLN 2ML BTL OD SCH (13:18)
[2024-07-18] MEDS: TETRACAINE 0.5% OPHTH SOLN 4ML OD SCH (13:18)
[2024-07-18] MEDS: FLURBIPROFEN 0.03% OPHTH SOLN 2.5 ML OD SCH (13:18)
[2024-07-18] MEDS ORDERED: MIDAZOLAM INJ 2MG/2ML VIAL As Ordered ONE (13:46)
[2024-07-18] MEDS ORDERED: fentaNYL 100 MCG/2 ML INJECTION As Ordered ONE (13:48)
[2024-07-18] MEDS: LIDOCAINE 1% SDV 5ML VIAL As Ordered ONE (14:12)
[2024-07-18] MEDS: MOXIFLOXACIN 0.6MG/0.4ML INTRAOCULAR SYRINGE As Ordered ONE (14:13)
[2024-07-18 14:28] VITALS: BP 142/68; TEMP 97.8; O2SAT 98
== END 2024-07-18 14:56 | disposition home or self-care (01) ==
LOC: M SDC 12:16
PROVIDERS: ATTEND Ophthalmology
DX: H25.11 Age-related nuclear cataract, right eye (principal); H40.9 Unspecified glaucoma; I10 Essential (primary) hypertension; E03.9 Hypothyroidism, unspecified; E78.00 Pure hypercholesterolemia, unspecified; Z79.899 Other long term (current) drug therapy; Z79.890 Hormone replacement therapy; Z87.891 Personal history of nicotine dependence; Z88.0 Allergy status to penicillin
CPT/HCPCS: 66984; J2250; J3010; V2632